=== PATIENT | female | born 1990 | race Caucasian/White ===

== ENCOUNTER 2017-06-05 09:30 | Emergency (ER) | payer OTHER ==
[~2017-06-05] VITALS: Ht 157.5 cm; Wt 67.4 kg
[~2017-06-05 09:30] MED LIST: CALC500C70 PO; IBUP1CAP9 PO; RANI1TAB13 PO; TYLOTC500 PO
[2017-06-05 09:31] VITALS: TEMP 36.7; Ht 157.5 cm; Wt 67.4 kg
[2017-06-05] MEDS ORDERED: XYLOCAINE 1%/SOD BICARB 20 ML VIAL INFIL ONE (10:15)
[2017-06-05] MEDS ORDERED: SERT100T PO (10:42)
[2017-06-05] MEDS ORDERED: LEVO75TA5 PO (10:42)
[2017-06-05] MEDS ORDERED: FENU1CAP2 PO (10:42)
[2017-06-05] MEDS ORDERED: PRENTAB26 PO (10:42)
[2017-06-05] MEDS ORDERED: METO1TAB55 PO (10:42)
--- NOTE | 2017-06-05 10:59 | EMERGENCY ROOM VISIT NOTE ---
ED Visit Note First contact with patient: 09:47 CHIEF COMPLAINT: Right second finger laceration at work today HISTORY OF PRESENT ILLNESS: Patient is a [id number] 27-year-old white female who presents emergency department for evaluation of a laceration to the palmar aspect of her left second finger that occurred at work just prior to arrival. She was holding a piece of picture frame glass, when a small corner broke off, puncturing into the palm of her finger, causing the laceration described below. She does not believe that there is any glass in the wound. She denies any weakness, but states that the finger feels "numb." REVIEW OF SYSTEMS: NEUROLOGICAL: No headache, change in mental status, weakness, numbness, or dizziness. GENERAL: No fever or chills, easy fatigue, loss of appetite, or significant weight change. PMH: Electronic medical records are reviewed and summarized as above/below. See Problem List. Tetanus is up-to-date. SOCIAL HISTORY: Patient lives at home. Smoker. PHYSICAL EXAM: Vital Signs: Reviewed Nurse's notes. There is a 0.5 cm long laceration on the palmar aspect of the right second finger, just distal to the MCP crease. The edges gape apart with traction. There is no foreign material in the wound and it looks clean. There is no bleeding. No deep structures such as tendons or nerves are seen in the base of the wound. Flexion of the finger is full and strong one isolated at the MCP, the PIP and the DIP. EMERGENCY DEPARTMENT COURSE: Using sterile technique, saline and Betadine cleansing, and 1% lidocaine anesthesia, the laceration was repaired with 2, 5-0 nylon sutures. I do not suspect flexor tendon, nerve or vascular injury. I do not suspect retained foreign body. Medication reconciliation: I attest that I have personally reviewed the patient' s current medication list. Blood pressure screening : Patient was found to have normal blood pressure on screening and does not require follow-up. Problem List Medical Problems: (1) Anxiety Status: Chronic (2) Asthma Status: Chronic (3) Bacterial pneumonia Status: Resolved (4) Depression Status: Chronic (5) Depression Status: Resolved (6) DYSMENORRHEA Status: Chronic (7) Gastroesophageal reflux disease Status: Chronic (8) Paresthesias Status: Resolved (9) Right wrist pain Status: Resolved (10) Suicidal ideation Status: Resolved (11) TOBACCO USE DISORDER Status: Chronic Surgical Problems: (1) H/O rhinoplasty Status: Resolved Current/Historical Medications Scheduled Fenugreek (Trigonella Foenum-G (Fenugreek), 1 CAP PO DAILY Levothyroxine Sodium (Levothyroxine Sodium), Unknown Dose PO DAILY Metoclopramide Hcl (Reglan), 10 MG PO BID Multivit/Min/Iron/Fol Ac/Pren ( Vitamin), 1 TAB PO DAILY Sertraline Hcl (Zoloft), 100 MG PO DAILY Allergies Coded Allergies: No Known Allergies (Unverified , 06/05/17) Vital Signs Date Time Temp Pulse Resp B/P (MAP) Pulse Ox O2 Delivery O2 Flow Rate FiO2 06/05/17 11:20 66 16 106/94 97 06/05/17 09:31 36.7 72 18 104/65 97 Room Air Departure Information Impression Primary Impression: Finger laceration Additional Impression: Work related injury Referrals Jeanie Rockwell D.O. (PCP) Patient Instructions [facility] Additional Instructions Keep wound clean and dry. Do not allow any crusting or dried blood to accumulate on sutures. If this occurs, use a 1:1 solution of hydrogen peroxide/ water on a Q-tip to clean the wound. Use an antibiotic ointment for 3-4 days, then let wound dry. Suture removal in 10-12 days. Return sooner for any signs of infection (increasing redness, swelling, drainage). Ice and elevate for swelling and pain. Ibuprofen 600 mg and Tylenol 1000 mg every 6 hrs for pain. Problem Qualifiers
[2017-06-05 11:20] VITALS: BP 106/94; PULSE 66; O2SAT 97
== END 2017-06-05 11:10 | disposition home or self-care (01) ==
LOC: C.EDB 09:31
DX: S61.211A Laceration without foreign body of left index finger without damage to nail, initial encounter (principal); W25.XXXA Contact with sharp glass, initial encounter; Y99.0 Civilian activity done for income or pay; F41.9 Anxiety disorder, unspecified; J45.909 Unspecified asthma, uncomplicated; F32.9 Major depressive disorder, single episode, unspecified; K21.9 Gastro-esophageal reflux disease without esophagitis; N94.6 Dysmenorrhea, unspecified; F17.200 Nicotine dependence, unspecified, uncomplicated

== ENCOUNTER 2021-08-16 09:34 | Inpatient (IN) ==
[~2021-08-16 09:34] MED LIST changes: -CALC500C70 PO; +CITRIC ACID/SODIUM CITRATE 15 ML UDC PO SCH; -IBUP1CAP9 PO; -RANI1TAB13 PO; -TYLOTC500 PO; +ceFAZolin 2000MG 2,000 MG/15 ML SYR IV SCH
[2021-08-16] MEDS ORDERED: LACTATED RINGER'S 1,000 ML IV SCH ×2 (10:30→13:15)
[2021-08-16] MEDS ORDERED: MoRPHine SULFATE PF 1 MG/ML 10 ML AMP/VIAL ONE ×2 (10:36→12:57)
[2021-08-16] MEDS ORDERED: fentaNYL citrate 100 MCG/2 ML VIAL ONE ×2 (10:36→12:10)
--- NOTE | 2021-08-16 10:37 | Anesthesiology Consultation ---
Date of Service August 16, 2021 Assessment & Plan (1) Encounter for pre-operative examination: Chart Review Chart Review: Acceptable Risk for Surgery Consults Requested none ASA [id number] Proposed Anesthesia Anesthesia Type: Spinal Site: Transversus Abdominal Plane Risk / Benefits Reviewed With: PT / POA / Parent / Guardian, Accepts Plan and Informed Consent Obtained History Allergies Allergy/AdvReac Type Severity Reaction Status Date / Time No Known Allergies Allergy Unverified 06/05/17 10:42 Medications Home Medications Medication Instructions Recorded Confirmed Last Taken buprenorphine 8 mg-naloxone 2 mg 4 tab SUBLINGUAL BID 08/10/21 08/16/21 08/16/21 06:00 sublingual tablet prenat.vits,luz,bxk-zgof-hqaeb 1 tab PO DAILY 08/10/21 08/16/21 08/16/21 06:00 albuterol sulfate 90 mcg/actuation INHALATION 08/16/21 Unknown aerosol inhaler NPO Date Last Intake of Fluids: 08/16/21 Time Last Intake of Fluids: 07:30 Date Last Intake of Solids: 08/16/21 Time Last Intake of Solids: 07:30 Past Medical History Medical History delivery delivered Depression Hypothyroid Tobacco dependence Exercise / Class Metabolic Activity II 4-5 Yardwork/Stairs/Walk up hill Past Surgical History Surgical History History of rhinoplasty Past Anesthesia History No Hx of Anesthesia Complications and No Family Hx of Anesthesia Complications History of PONV No Hx of PONV and No Hx of Motion Sickness Social History Smoking Status: Current every day smoker tobacco type: cigarettes Smoking cigarettes per day: 6 Hx Alcohol Use: No Hx Substance Use: No Physical Exam Vital Signs Last Vital Signs Pulse 113 H 08/16/21 09:44 BP 119/77 08/16/21 09:44 ENMT Mouth: no dentition abnormality Thyromental Distance: > or= 3.5 Finger Breadths Mallampati Class: II Neck normal visual inspection Respiratory normal respiratory effort Auscultation: lungs clear to auscultation bilaterally Cardiovascular Rate/Rhythm: regular rate and regular rhythm
--- NOTE | 2021-08-16 10:47 | History & Physical Report ---
Date of Service August 16, 2021 Assessment & Plan (1) 41 weeks gestation of : Plan: 31 year old at 41 0/7 Cat II tracing with prolonged deceleration remote from delivery (2) Non-reassuring electronic monitoring tracing: Plan: Proceed with repeat CD (3) Positive GBS test: (4) Previous delivery affecting , antepartum: (5) Tobacco use affecting in third trimester, antepartum: Plan: Nicotine patch if needed (6) Hepatitis C antibody positive in blood: Plan: Viral load negative January 2021, will repeat (7) complicated by subutex maintenance, antepartum: Plan: Continue home meds as Rx (8) Hypothyroid in , antepartum: (9) History of delivery, currently : (10) Asthma affecting in third trimester: (11) Major depressive disorder affecting : Plan: Admit, routine labs, recommended CD for prolonged deceleration and unable to augment with oxytocin at this time. Consents signed at bedside. Please see op report for counseling note Admission and Anticipated Discharge Date Admission Date: August 16, 2021 History of Present Illness Chief Complaint: TOLAC IOL Primary Care Provider: Jeanie Rockwell DO Patient is a 31 year old at 41 0/7 wga dated by 8 week US who presents for IOL for postdates and previous CDx1. LTCS done at [place] in 2016. Denies LOF, vaginal bleeding, contractions. +FM. Denies headache,, BV, RUQ pain. Otherwise feeling well PNC at [facility], started 10 weeks and 13 visits Last took subutex dose this AM, takes 8mg BID No other complaints at this time. Allergies Allergy/AdvReac Type Severity Reaction Status Date / Time No Known Allergies Allergy Unverified 06/05/17 10:42 Home Medications Medication Instructions Recorded Confirmed Type buprenorphine 8 mg-naloxone 2 mg 4 tab SUBLINGUAL BID 08/10/21 08/16/21 History sublingual tablet prenat.vits,luz,onr-ybon-bmeff 1 tab PO DAILY 08/10/21 08/16/21 History albuterol sulfate 90 mcg/actuation INHALATION 08/16/21 History aerosol inhaler Past Med/Surg History Medical History delivery delivered Depression Hypothyroid Tobacco dependence Surgical History History of rhinoplasty Social History Smoking Status: Current every day smoker Cigarettes Per Day: 6; Second Hand Exposure: Yes; Hx Alcohol Use: No Hx Substance Use: No Preferred Language: Armenian Communication Ability: Effective Motion Picture Set Worker Required: No Beliefs That Will Affect Care: None marital status: Single Current Living Situation: Family Current Living Situation Comment: boyfriend AND DAUGHTER Feels Safe at Home: Yes Safety Concerns: Feels Safe At This Time Assistive Devices: None Review of Systems Review of Systems: All systems reviewed & are unremarkable except as noted in HPI & below Physical Exam Constitutional: WD/WN, vitals as above Respiratory: normal respiratory effort, lungs clear to auscultation Cardiovascular: RRR, no murmur, no edema Gastrointestinal (Abdomen): normal bowel sounds, soft, nontender, no hepatosplenomegaly gravid Genitourinary: no vaginal lesions, no adnexal mass Cx 250/-3 posterior Results & Data Results & Data ([facility]) Vital Signs (Past 12 Hours) Vital Signs Pulse BP 08/16/21 09:44 113 H 119/77 Laboratory Results Pending Code Status & VTE Plan VTE Prophylaxis Plan VTE Prophylaxis will be ordered: Yes
[2021-08-16 10:52] LABS: Hematocrit (blood only) 38.2 % (37-47); Hemoglobin 13.1 g/dL (12.0-16.0); Mean Corpuscular Volume 87.6 fL (80-100); Mean Platelet Volume 10.5 fL (7.4-10.4); Platelet Count 262 K/uL (130-400); RDW Coefficient of Variation 12.6 % (11.5-14.5); RDW Standard Deviation 40.5 fL (36.4-46.3); Red Blood Count 4.36 M/uL (4.2-5.4); White Blood Count 16.79 K/uL (4.8-10.8)
[2021-08-16] MEDS ORDERED: BUPIVACAINE 0.25% 30 ML VIAL ONE (11:02)
[2021-08-16 11:06] LABS: Mean Corpuscular Hgb Conc 34.3 g/dL (32-36)
[2021-08-16 11:21] LABS: Amphetamines+Metham, Urine Neg (Neg); Barbiturates, Urine Neg (Neg); Benzodiazepine, Urine Neg (Neg); Cocaine, Urine Neg (Neg); MDMA (Ecstacy), Urine Neg (Neg); Methadone, Urine Neg (Neg); Opiate, Urine Neg (Neg); Phencyclidine, Urine Neg (Neg)
[2021-08-16] MEDS ORDERED: HYDROmorphone INJ 2 MG/ML SYR/VIAL ONE ×2 (12:13→12:15)
[2021-08-16] MEDS ORDERED: PROPOFOL IV EMULSION 10 MG/ML 20 ML VIAL IV ONE (12:46)
[2021-08-16] MEDS ORDERED: NEOSTIGMINE METHYLSULFATE 1 MG/ML 10ML VIAL ONE (12:46)
[2021-08-16] MEDS ORDERED: SUCCINYLCHOLINE CHLORIDE 20 MG/ML 10 ML VIAL IV ONE (12:46)
[2021-08-16] MEDS ORDERED: GLYCOPYRROLATE 0.2 MG/ML VIAL ONE (12:46)
[2021-08-16] MEDS ORDERED: ePHEDrine sulfate 50 MG/ML AMP ONE (12:56)
[2021-08-16] MEDS ORDERED: OXYTOCIN 10 UNITS/ML VIAL ONE (12:57)
[2021-08-16] MEDS ORDERED: ROCURONIUM BROMIDE 10 MG/ML 5 ML VIAL IV ONE (12:59)
--- NOTE | 2021-08-16 13:02 | Post Operative Brief Note ---
Immediate Post Op Note v1 Date of Surgery August 16, 2021 Pre & Post Diagnosis Operation Date: 08/16/21 11:20 Pre-Op Diagnosis: 1. IUP at 41 Weeks 2. Previous 3. Non-Reassuring FHR Tracing; Remote from delivery. 4. Subutex use during 5. Hypothyroid Post-Op Diagnosis: Same I identified the patient and participated in the time-out.: Yes Procedure Operation Date: 08/16/21 11:20 Actual Procedures p Section in LD in OR #3; Repeat Lower Uterine Transverse Section for the of a live girl at 1209. (Bilateral) - Cecilia Bullock MD, PhD Surgeon Cecilia Bullock MD, PhD Women'S Lacrosse Coach Gwen Thomas RN, Jaelyn Dempsey RESEARCH LABORATORY SPECIALIST Estimated Blood Loss 800 Findings Consistent with Post-Op Diagnosis Liveborn female at 109, weight 3265g APGARs 8/8. Intact placenta 3 vessel cord, Cord pH pending. Normal appearing uterus, bilateral Fallopian tubes and ovaries Drains Pretty Catheter Anesthesia Type General w/FOI & Regional Complications none Disposition Accompanied Patient To Recovery: Yes
[2021-08-16] MEDS ORDERED: FLOSEAL HEMOSTATIC MATRIX 10ML TOP ONE (13:08)
[2021-08-16 13:09] LABS: Base Excess Cord Arterial Bld -4.9 mEq/L (-9-1.8); CO2 Cord Arterial Blood 60 mmHg (39.1-73.5); HCO3 Cord Arterial Blood 24 mmol/L (19.7-28.5); PO2 Cord Arterial Blood 16 mmHg (4.1-31.7)
[2021-08-16] MEDS ORDERED: SENNA 8.6 MG TAB PO PRN (13:11)
[2021-08-16] MEDS ORDERED: diphenhydrAMINE 50 MG/ML VIAL IV PRN (13:11)
[2021-08-16] MEDS ORDERED: BENZOCAINE 20% AER SPR 82.5 GM CAN EXT PRN (13:11)
[2021-08-16] MEDS ORDERED: DIPHTHERIA/TETANUS/PERTUSSIS 0.5 ML SYR/VIAL IM ONE (13:11)
[2021-08-16] MEDS ORDERED: traMADol HCL 50 MG TABLET PO PRN (13:11)
[2021-08-16] MEDS ORDERED: diphenhydrAMINE Capsule 25 MG CAP PO PRN (13:11)
[2021-08-16] MEDS ORDERED: KETOROLAC 30 MG/ML VIAL IV PRN ×2 (13:11→13:52)
[2021-08-16] MEDS ORDERED: PROMETHAZINE HCL 25 MG in SODIUM CHLORIDE 0.9% 50 ML IV PRN (13:11)
[2021-08-16] MEDS ORDERED: SUPERCREAM 0.870% 15 GM JAR EXT PRN (13:11)
[2021-08-16] MEDS ORDERED: ONDANSETRON INJ 2 MG/ML 2 ML VIAL IV PRN ×2 (13:11→13:52)
[2021-08-16] MEDS ORDERED: HYDROCORTISONE ACETATE 25 MG SUPP PR PRN (13:11)
[2021-08-16] MEDS ORDERED: MAGNESIUM HYDROXIDE SUSP 30 ML UDC PO PRN (13:11)
[2021-08-16 13:14] LABS: Base Excess Cord Venous Blood -3.1 mEq/L (-7.7-1.9); Cord Venous Blood HCO3 24 mmol/L (18.4-26.8); Cord Venous Blood PCO2 52 mmHg (30.4-57.2); Cord Venous Blood PO2 23 mmHg (14.1-43.3); Oxygen Sat Cord Arterial Blood < 60.0 % (<60)
[2021-08-16 13:15] LABS: Cord Venous Blood pH 7.29 (7.20-7.44); O2 Saturation Cord Venous Bld < 60.0 % (<68); pH Cord Arterial Blood 7.22 (7.1-7.38)
--- NOTE | 2021-08-16 13:26 | Operative Report ---
Post Operative Report Pre & Post Diagnosis Operation Date: 08/16/21 11:20 Pre-Op Diagnosis: 1. IUP at 41 Weeks 2. Previous lower transverse 3. Non-Reassuring FHR Tracing; Remote from delivery. 4. Subutex use during 5. Hypothyroid in Post-Op Diagnosis: Same I identified the patient and participated in the time-out.: Yes Procedure Operation Date: 08/16/21 11:20 Actual Procedures p Section in LD in OR #3; Repeat Lower Uterine Transverse Section for the of a live girl at 1209. (Bilateral) - Cecilia Bullock MD, PhD CD Delivery Note History synopsis Patient is 31-year-old -1-0-1 at 41 weeks gestation who presented for possible induction of labor for postdates as well as a previous delivery and desires TOLAC. Upon presentation patient had a prolonged deceleration and remained category 2 tracing. She was checked and found to be 2 cm dilated and unchanged since clinic visit. Commended repeat delivery as patient was remote from delivery with nonreassuring heart tracing Procedure Summary: section was recommended. Risks, benefits and alternatives were discussed including but not limited to infection, bleeding that may require blood products or hysterectomy for life saving measures, injury to surrounding organs including but not limited to bowel, bladder, ureters, tubes and ovaries and/or the baby. Should injury occur it could require longer/additional surgery to repair. Patient was also counselled about risk of DVT/PE, and injury to during delivery. The patient stated understanding and desired to proceed. All questions were answered posed by patient. Prior to being taken to the OR, 2 grams of cefazolin IV was administered. The patient was taken to the operating room where regional anesthesia was found to be adequate. Prior to monitors being removed FHR waa 150 bpm with variable deceleration. She was then prepared and draped in the usual sterile fashion in the dorsal supine position with a leftward tilt displacing the uterus. Pretty was draining to gravity. SCDs were on bilateral lower extremities. A pfannenstiel skin incision was then made with the scalpel and carried through to the underlying layer of fascia. The fascia was incised in the midline and the incision extended laterally with the Barney scissors. The superior aspect of the facial incision was then grasped with the Seth clamps, elevated and the underlying rectus muscles dissected off bluntly. Attention was then turned to the inferior aspect of this incision which in a similar fashion was grasped, elevated with the Seth clamps and the rectus muscle dissected off bluntly. The rectus muscles were in the midline. The peritoneum identified, grasped with the pick-ups and entered sharply with the Metzenbaum scissors. The peritoneal incision was then extended superiorly and inferiorly with good visualization of the bladder. The bladder blade was inserted and the vesicouterine peritoneum was identified, grasped with the pick-ups, and entered sharply with Metzenbaum scissors. This incision was then extended laterally and the bladder flap created digitally and the bladder blade was reinserted. The lower uterine segment was identified and incised in a transverse fashion with the scalpel. The uterine incision was then extended bluntly laterally. Artificial rupture of membranes demonstrated clear fluid. The bladder blade was removed. The fetus was in cephalic presentation. After multipe attempts to deliver infants head, A kiwi vacuum device was applied over the sagittal suture and about 3 cm in from the posterior fontanelle toward the face. Vacuum pressure was created with the hand pump and established at 500 mm Hg. The edge of the vacuum cup was carefully examined and no maternal tissue was entrapped under the cuff. With the left hand applying counter pressure on the vacuum cup to prevent pop-off, the right hand applied gentle horizontal traction. The handle of the vacuum was gradually elevated. The cup did not pop off off during the entire procedure. The cup was removed after the head delivered. The 's head delivered atraumatically. The anterior shoulders were delivered followed by the posterior shoulders then the remainder of the body. The 's mouth and nose were bulb suctioned. The umbilical cord was clamped times two and cut. The infant was handed off to the awaiting pediatric staff. A female was delivered [id number] with APGARS of 8 at 1 minute and 9 at 5 minutes. The i nfant was taken to the recovery room for transition. Cord blood gases were obtained. The placenta was removed with gentle traction and manual removal. 30 units of oxytocin were added to IVF and allowed to run freely. The uterus was exteriorized and cleared of all clots and debris. The uterine incision was inspected and found to be without any extensions and was repaired with 0 Vicryl in a running, locked fashion. A second imbricating layer was performed. Upon inspection, the repaired hysterotomy was found to be hemostatic. Patient could no longer tollerate procedure due to pain, and underwent GA at this time. The uterus was firm and returned to the abdomen. There was noted to be bleeding from edge of bladder flap, and hemostasis achieved with figure of eight suture of 2-0 vicyl and Flow seal was applied. The gutters were cleared of all clots and debris. The Peritoneum was closed with 2-0 vicryl in running fashion. The fascia was reapproximated with 0 Vicryl in a running fashion. The subcutaneous layer was closed with 2-0 vicryl. The skin was closed in a subcuticular fashion with 4-0 vicryl. Dermabond and pressure bandage was applied over incision. The patient tolerated the procedure well. Sponge, lap and needle counts were correct x4. Patient was under GA at this time and anesthesia performed a TAP block. The patient was taken to the recovery room in stable condition. Surgeon Cecilia Bullock MD, PhD Medical Billing Clerk Gwen Thomas RN, Jaelyn Dempsey LOW PRESSURE BOILER TENDER Estimated Blood Loss 800 Findings Consistent with Post-Op Diagnosis A liveborn female at 1209, APGArs 8/9, weight 3265g. Intact placenta with 3 vessel cord, cord pH pending. Normal appearing uterus, bilateral Fallopian tubes and ovaries seen at time of surgery. Specimens None Drains None Anesthesia Type General w/FOI & Regional Complications None Disposition Disposition: L&D Description of Procedure Repeat lower transverse section I attest to the content of the Intraoperative Record and any orders documented therein. Any exceptions are noted below.
[2021-08-16] MEDS ORDERED: HYDROmorphone INJ 2 MG/ML SYR/VIAL IV PRN (13:52)
[2021-08-16] MEDS ORDERED: ATROPINE SULFATE 0.1 MG/ML 10ML SYR IV PRN (13:52)
[2021-08-16] MEDS ORDERED: ePHEDrine sulfate 50 MG/ML AMP IV PRN (13:52)
[2021-08-16] MEDS ORDERED: fentaNYL citrate 100 MCG/2 ML VIAL IV PRN (13:52)
[2021-08-16] MEDS ORDERED: ACETAMINOPHEN 1,000 MG/100 ML VIAL IV STA (13:52)
[2021-08-16] MEDS ORDERED: ceFAZolin 1000MG 1,000 MG/7.5 ML SYR IV STA (15:30)
--- NOTE | 2021-08-16 15:41 | Obstetrical Progress Note ---
Date of Service August 16, 2021 Assessment & Plan (1) hemorrhage: Bimanual massage was performed, continue to have vaginal bleeding. Patient was updated at the bedside and was given 1 dose of Methergine, she continued to have vaginal bleeding and childhood asthma history was reviewed and she had not used inhaler in over 20 years. 1 dose of Hemabate was also given IM. At that time decision was made to proceed with a Manny balloon placement, due to the bleeding from the lower uterine segment where the hysterotomy had been repaired and there had been noted oozing at the time of surgery intraoperatively. Updated the patient at the bedside about plan of care, and if the bleeding continues to happen even despite Manny balloon, the plan will be to go back to the OR for exploratory laparotomy, possible hysterectomy. Patient voiced her understanding, back reballoon was placed and 250 mL of saline was placed into the Manny balloon. The balloon was noted to be in the proper location, and Pretty bag was connected to the output. Minimal output noted after Mnany was placed. We will plan to remove in 12 hours. 1gr ancef ordered Patient voided understanding and agreement with plan of care Subjective Called by nursing staff for large amount of vaginal bleeding and clots after delivery to patient's room. .Patient was laying in bed, appears uncomfortable, approximately 7 to 800 mL of bright red blood and clots were noted on the perineum and Chux pad Review of Systems All systems reviewed & are unremarkable except as noted in HPI & below Physical Exam Constitutional WD/WN, vitals as above Respiratory normal respiratory effort, lungs clear to auscultation Cardiovascular RRR, no murmur, no edema Genitourinary Exam was performed that noted large amount of clots at the cervix, suture from delivery was noted in the lower uterine segment, no dehiscence was noted bimanual massage was performed, patient still had ongoing vaginal bleeding from lower uterine segment. Results & Data ([facility]) Vital Signs (Past 12 Hours) Vital Signs Temp Pulse Resp BP Pulse Ox 08/16/21 15:34 66 99 08/16/21 15:29 75 100 08/16/21 15:27 78 90 08/16/21 15:26 67 104/51 L 08/16/21 15:24 75 98 08/16/21 15:19 108 H 79 L 08/16/21 15:17 123 H 90 08/16/21 15:14 123 H 76 L 08/16/21 15:09 144 H 96 08/16/21 15:04 126 H 85 L 08/16/21 15:03 96 H 94 08/16/21 14:59 77 97 08/16/21 14:56 176 H 120/56 L 08/16/21 14:54 124 H 96 08/16/21 14:51 76 93 08/16/21 14:49 67 98 08/16/21 14:46 80 111/57 L 08/16/21 14:44 61 97 08/16/21 14:41 73 93 08/16/21 14:39 58 L 98 08/16/21 14:36 114 H 120/60 08/16/21 14:35 62 20 120/60 98 08/16/21 14:34 59 L 97 08/16/21 14:29 51 L 97 08/16/21 14:26 53 L 110/64 08/16/21 14:25 54 L 24 110/64 95 08/16/21 14:24 67 93 08/16/21 14:23 78 94 08/16/21 14:19 57 L 97 08/16/21 14:16 55 L 114/57 L 90 08/16/21 14:15 56 L 12 114/57 L 99 08/16/21 14:14 58 L 97 08/16/21 14:09 57 L 98 08/16/21 14:06 51 L 113/62 08/16/21 14:05 50 L 18 113/62 98 08/16/21 14:04 51 L 94 08/16/21 14:03 50 L 98/56 L 08/16/21 13:59 51 L 98 08/16/21 13:58 49 L 109/70 08/16/21 13:55 49 L 16 109/70 99 08/16/21 13:54 51 L 99 08/16/21 13:49 49 L 98 08/16/21 13:48 47 L 108/63 08/16/21 13:45 56 L 15 108/63 99 08/16/21 13:44 51 L 96 08/16/21 13:37 48 L 108/70 08/16/21 13:35 36.4 C L 48 L 10 L 108/70 98 08/16/21 10:08 36.8 C 113 H 18 119/77 08/16/21 09:44 113 H 119/77 Laboratory Results CBC pending
--- NOTE | 2021-08-16 15:45 | Anesthesiology Progress Note ---
Date of Service August 16, 2021 Anesthesia Post Procedure Vital Signs Vital Signs: Temp Pulse Resp BP Pulse Ox 08/16/21 15:39 71 98 08/16/21 15:36 68 111/76 08/16/21 15:34 66 99 08/16/21 15:29 75 100 08/16/21 15:27 78 90 08/16/21 15:26 67 104/51 L 08/16/21 15:24 75 98 08/16/21 15:19 108 H 79 L 08/16/21 15:17 123 H 90 08/16/21 15:14 123 H 76 L 08/16/21 15:09 144 H 96 08/16/21 15:04 126 H 85 L 08/16/21 15:03 96 H 94 08/16/21 14:59 77 97 08/16/21 14:56 176 H 120/56 L 08/16/21 14:54 124 H 96 08/16/21 14:51 76 93 08/16/21 14:49 67 98 08/16/21 14:46 80 111/57 L 08/16/21 14:44 61 97 08/16/21 14:41 73 93 08/16/21 14:39 58 L 98 08/16/21 14:36 114 H 120/60 08/16/21 14:35 62 20 120/60 98 08/16/21 14:34 59 L 97 08/16/21 14:29 51 L 97 08/16/21 14:26 53 L 110/64 08/16/21 14:25 54 L 24 110/64 95 08/16/21 14:24 67 93 08/16/21 14:23 78 94 08/16/21 14:19 57 L 97 08/16/21 14:16 55 L 114/57 L 90 08/16/21 14:15 56 L 12 114/57 L 99 08/16/21 14:14 58 L 97 08/16/21 14:09 57 L 98 08/16/21 14:06 51 L 113/62 08/16/21 14:05 50 L 18 113/62 98 08/16/21 14:04 51 L 94 08/16/21 14:03 50 L 98/56 L 08/16/21 13:59 51 L 98 08/16/21 13:58 49 L 109/70 08/16/21 13:55 49 L 16 109/70 99 08/16/21 13:54 51 L 99 08/16/21 13:49 49 L 98 08/16/21 13:48 47 L 108/63 08/16/21 13:45 56 L 15 108/63 99 08/16/21 13:44 51 L 96 08/16/21 13:37 48 L 108/70 08/16/21 13:35 36.4 C L 48 L 10 L 108/70 98 08/16/21 10:08 36.8 C 113 H 18 119/77 08/16/21 09:44 113 H 119/77 Pain Intensity Lower Medial Abdomen: Pain Intensity: 7 Transfer of Care Handoff Completed per policy Notes Mental Status: alert / awake / arousable and participated in evaluation Patient Amnestic to Procedure: Yes Nausea / Vomiting: adequately controlled Pain: adequately controlled Airway Patency, RR, SpO2: stable & adequate BP & HR: stable & adequate Hydration State: stable & adequate Neuraxial Anesthesia: was administered and sensory block is resolving Anesthetic Complications: no major complications apparent
[2021-08-16 15:47] LABS: Hemoglobin 10.1 g/dL (12.0-16.0); Mean Corpuscular Hemoglobin 29.5 pg (25-34); Mean Corpuscular Hgb Conc 33.7 g/dL (32-36); Mean Corpuscular Volume 87.7 fL (80-100); Mean Platelet Volume 10.3 fL (7.4-10.4); Platelet Count 312 K/uL (130-400); RDW Coefficient of Variation 12.8 % (11.5-14.5); RDW Standard Deviation 41.5 fL (36.4-46.3); Red Blood Count 3.42 M/uL (4.2-5.4); White Blood Count 40.12 K/uL (4.8-10.8)
[2021-08-16] MEDS ORDERED: CARBOPROST TROMETHAMINE 250 MCG/ML AMPUL ONE (15:51)
[2021-08-16] MEDS ORDERED: METHYLERGONOVINE MALEATE 0.2 MG/ML AMP ONE (15:52)
[2021-08-16 16:03] LABS: Basophils # (auto) 0.02 K/uL (0-0.2); Eosinophils # (auto) 0.01 K/uL (0-0.5); Immature Granulocytes # (auto) 0.26 K/uL (0.00-0.02); Immature Granulocytes % (auto) 0.6 %; Lymphocytes # (auto) 1.68 K/uL (1.2-3.4); Lymphocytes % (auto) 4.2 %; Monocytes # (auto) 1.99 K/uL (0.11-0.59); Neutrophils # (auto) 36.16 K/uL (1.4-6.5); Neutrophils % (auto) 90.2 %
[2021-08-16] MEDS: OXYTOCIN 30 UNITS in LACTATED RINGER'S 1,000 ML IV SCH ×2 (16:15→23:56)
[2021-08-16] MEDS ORDERED: HYDROmorphone INJ 0.5 MG/0.5 ML SYR IV PRN (18:25)
[2021-08-16] MEDS ORDERED: HYDROmorphone Bolus from PCA IV STA (20:22)
[2021-08-16] MEDS ORDERED: NALOXONE HCL 0.4 MG/1 ML VIAL/CARP IV PRN ×2 (20:22→20:41)
[2021-08-16] MEDS ORDERED: SODIUM CHLORIDE 0.9% 1000ML 1,000 ML IV SCH ×2 (20:30→20:45)
[2021-08-16] MEDS ORDERED: buprenorphine HCL 8 MG SUBL SL SCH (21:00)
[2021-08-16] MEDS: HYDROmorphone PCA 30 MG/30 ML IV PRN (21:31)
[2021-08-16] MEDS: DOCUSATE SODIUM 100 MG CAP PO SCH (21:41)
[2021-08-16] MEDS: SIMETHICONE 80 MG CHEW PO SCH (23:58)
[2021-08-17] MEDS ORDERED: SODIUM CHLORIDE 0.9% 250 ML IV PRN ×2 (02:05→07:06)
--- NOTE | 2021-08-17 05:18 | Obstetrical Progress Note ---
Date of Service August 17, 2021 Assessment & Plan (1) hemorrhage: Manny balloon was removed (was 100mls output for last 12 hrs) and patient tolerated well. No bleeding noted, fundus firm below U. Will continue to monitor. Continue DRUM WORKER until this morning. Morning CBC pending Subjective Patient resting comfortably in bed, pain controlled with DRUM WORKER overnight. Pretty in place. Not ambulating yet, clears only so far Review of Systems All systems reviewed & are unremarkable except as noted in HPI & below Physical Exam Constitutional WD/WN, vitals as above Respiratory normal respiratory effort, lungs clear to auscultation Cardiovascular RRR, no murmur, no edema Gastrointestinal (Abdomen) normal bowel sounds, soft, nontender, no hepatosplenomegaly fundus below U Genitourinary Manny was removed, no bleeding noted Results & Data ([facility]) Vital Signs (Past 12 Hours) Vital Signs Temp Pulse Resp BP Pulse Ox 08/17/21 05:10 97 H 93 08/17/21 05:05 96 H 93 08/17/21 05:02 100 H 123/59 L 08/17/21 05:00 100 H 91 08/17/21 04:55 106 H 91 08/17/21 04:52 96 H 94 08/17/21 04:50 99 H 92 08/17/21 04:47 99 H 94 08/17/21 04:45 97 H 93 08/17/21 04:40 105 H 92 08/17/21 04:36 96 H 94 08/17/21 04:35 94 H 95 08/17/21 04:30 93 H 94 08/17/21 04:25 97 H 20 94 08/17/21 04:20 126 H 89 L 08/17/21 04:15 103 H 97 08/17/21 04:10 125 H 96 08/17/21 04:05 95 H 96 08/17/21 04:04 94 H 94 08/17/21 04:02 101 H 131/57 L 08/17/21 04:00 92 H 95 08/17/21 03:57 98 H 94 08/17/21 03:55 90 95 08/17/21 03:52 91 H 94 08/17/21 03:50 93 H 95 08/17/21 03:45 93 H 96 08/17/21 03:41 92 H 93 08/17/21 03:40 93 H 94 08/17/21 03:36 95 H 94 08/17/21 03:35 86 95 08/17/21 03:30 37.2 C 98 H 20 99 08/17/21 03:29 104 H 94 08/17/21 03:25 90 95 08/17/21 03:20 96 H 95 08/17/21 03:15 84 98 08/17/21 03:10 90 97 08/17/21 03:05 84 98 08/17/21 03:02 92 H 120/62 08/17/21 03:00 93 H 96 08/17/21 02:55 86 98 08/17/21 02:50 93 H 96 08/17/21 02:45 86 95 08/17/21 02:43 102 H 94 08/17/21 02:40 98 H 93 08/17/21 02:38 97 H 94 08/17/21 02:35 83 96 08/17/21 02:30 113 H 22 87 L 08/17/21 02:25 99 H 97 08/17/21 02:20 93 H 99 08/17/21 02:15 101 H 98 08/17/21 02:10 94 H 98 08/17/21 02:04 92 H 98 08/17/21 02:02 101 H 133/62 08/17/21 01:59 98 H 98 08/17/21 01:54 92 H 97 08/17/21 01:49 98 H 97 08/17/21 01:44 103 H 98 08/17/21 01:39 104 H 99 08/17/21 01:34 96 H 96 08/17/21 01:30 22 08/17/21 01:29 103 H 97 08/17/21 01:24 107 H 97 08/17/21 01:19 129 H 99 08/17/21 01:14 127 H 98 08/17/21 01:12 143 H 94 08/17/21 01:08 107 H 97 08/17/21 01:03 105 H 97 08/17/21 01:02 116 H 155/83 H 08/17/21 00:58 116 H 100 08/17/21 00:53 99 H 97 08/17/21 00:48 99 H 97 08/17/21 00:43 95 H 95 08/17/21 00:38 110 H 98 08/17/21 00:33 89 98 08/17/21 00:30 16 08/17/21 00:28 112 H 97 08/17/21 00:23 88 98 08/17/21 00:18 117 H 98 08/17/21 00:16 107 H 90 08/17/21 00:13 96 H 99 08/17/21 00:08 107 H 97 08/17/21 00:03 99 H 99 08/17/21 00:02 96 H 139/66 08/16/21 23:58 92 H 99 08/16/21 23:53 102 H 98 08/16/21 23:48 96 H 97 08/16/21 23:43 111 H 98 08/16/21 23:38 91 H 100 08/16/21 23:33 99 H 98 08/16/21 23:28 97 H 98 08/16/21 23:23 83 98 08/16/21 23:20 37.1 C 22 100 08/16/21 23:18 104 H 99 08/16/21 23:13 88 100 08/16/21 23:08 116 H 100 08/16/21 23:03 98 H 99 08/16/21 23:02 114 H 115/74 08/16/21 22:58 100 H 100 08/16/21 22:53 104 H 99 08/16/21 22:51 110 H 93 08/16/21 22:48 125 H 99 08/16/21 22:43 97 H 99 08/16/21 22:39 141 H 94 08/16/21 22:38 135 H 97 08/16/21 22:33 118 H 99 08/16/21 22:30 24 100 08/16/21 22:28 115 H 99 08/16/21 22:23 116 H 98 08/16/21 22:18 119 H 99 08/16/21 22:13 137 H 99 08/16/21 22:08 158 H 100 08/16/21 22:03 115 H 08/16/21 22:02 130 H 110/67 08/16/21 21:58 121 H 99 08/16/21 21:53 131 H 100 08/16/21 21:50 138 H 81 L 08/16/21 21:48 138 H 100 08/16/21 21:42 175 H 95 10/08/21 21:37 96 H 99 08/16/21 21:32 110 H 100 08/16/21 21:27 123 H 100 08/16/21 21:22 100 H 100 08/16/21 21:17 119 H 100 08/16/21 21:11 98 H 100 08/16/21 21:06 98 H 100 08/16/21 21:02 112 H 120/79 08/16/21 21:01 115 H 99 08/16/21 20:56 94 H 99 08/16/21 20:51 111 H 100 08/16/21 20:46 104 H 100 08/16/21 20:41 99 H 100 08/16/21 20:36 92 H 100 08/16/21 20:31 109 H 100 08/16/21 20:26 112 H 100 08/16/21 20:21 112 H 100 08/16/21 20:16 108 H 100 08/16/21 20:11 128 H 100 08/16/21 20:06 108 H 100 08/16/21 20:03 98 H 106/50 L 08/16/21 20:01 118 H 100 08/16/21 20:00 18 08/16/21 19:56 123 H 100 08/16/21 19:51 108 H 100 08/16/21 19:46 131 H 100 08/16/21 19:41 123 H 100 08/16/21 19:36 131 H 100 08/16/21 19:31 134 H 100 08/16/21 19:29 155 H 92/74 L 08/16/21 19:26 141 H 100 08/16/21 19:21 125 H 100 08/16/21 19:16 109 H 100 08/16/21 19:14 108 H 104/76 08/16/21 19:11 114 H 100 08/16/21 19:06 137 H 100 08/16/21 19:01 131 H 100 08/16/21 19:00 36.8 C 22 100 08/16/21 18:59 114 H 105/78 08/16/21 18:56 136 H 100 08/16/21 18:51 111 H 100 08/16/21 18:46 108 H 100 08/16/21 18:44 125 H 102/72 08/16/21 18:41 135 H 100 08/16/21 18:36 36.7 C 108 H 24 100/71 98 08/16/21 18:34 141 H 98 08/16/21 18:29 145 H 98 08/16/21 18:24 132 H 98 08/16/21 18:19 101 H 98 08/16/21 18:14 143 H 111/61 98 08/16/21 18:09 136 H 98 08/16/21 18:04 144 H 96 08/16/21 17:59 118 H 97 08/16/21 17:56 155 H 104/73 08/16/21 17:54 140 H 97 08/16/21 17:49 155 H 98 08/16/21 17:46 36.8 C 142 H 16 92/67 L 08/16/21 17:44 139 H 97 08/16/21 17:39 152 H 98 08/16/21 17:36 146 H 101/71 08/16/21 17:34 149 H 97 08/16/21 17:29 135 H 97 08/16/21 17:26 118 H 102/70 08/16/21 17:24 133 H 96 08/16/21 17:19 135 H 96 08/16/21 17:16 109 H 104/69
[2021-08-17 06:08] LABS: Hematocrit (blood only) 16.8 % (37-47); Hemoglobin 5.8 g/dL (12.0-16.0); Mean Corpuscular Hemoglobin 29.9 pg (25-34); Mean Corpuscular Hgb Conc 34.5 g/dL (32-36); Mean Corpuscular Volume 86.6 fL (80-100); Mean Platelet Volume 9.9 fL (7.4-10.4); Platelet Count 211 K/uL (130-400); RDW Standard Deviation 40.8 fL (36.4-46.3); Red Blood Count 1.94 M/uL (4.2-5.4); White Blood Count 25.85 K/uL (4.8-10.8)
[2021-08-17 06:14] LABS: ALC (manual) 2.95 K/uL (1.2-3.4); Lymphocytes # (manual) 2.95 K/uL (1.2-3.4); Lymphocytes % (manual) 11.4 %; Monocytes % (manual) 3.5 %; Neutrophils % (manual) 85.1 %; RBC Morphology Unremarkable
[2021-08-17 07:00] LABS: Hematocrit (blood only) 16.6 % (37-47); Hemoglobin 5.8 g/dL (12.0-16.0)
--- NOTE | 2021-08-17 10:39 | Obstetrical Progress Note ---
Date of Service August 17, 2021 Assessment & Plan (1) hemorrhage: post op c/sec #1 PPH-Pt getting 2 units PRBC Stable vitals Repeat H/H after 2nd unit Clinically sable Subjective Ambulation: ambulating normally Voiding: no voiding problems Passing Gas:: Yes Diet Tolerance:: clear liquids Lochia:: Small Feeding Type:: breast feeding Review of Systems All systems reviewed & are unremarkable except as noted in HPI & below Physical Exam Constitutional WD/WN, vitals as above well developed and well nourished Eyes PERRL, conjunctivae normal, anicteric sclerae ENMT external ear and nose normal, oropharynx normal Neck trachea midline, no thyromegaly Respiratory normal respiratory effort, lungs clear to auscultation Cardiovascular RRR, no murmur, no edema Chest (Breasts) normal inspection/palpation of breasts Gastrointestinal (Abdomen) normal bowel sounds, soft, nontender, no hepatosplenomegaly Musculoskeletal no cyanosis or clubbing, extremities motor strength 5/5 Skin no rashes, warm and dry + incision (Clean,dry and intact) Neurologic patellar DTR's 2+ bilat, sensation intact Psychiatric A+Ox3, euthymic affect Genitourinary normal external appearance Lymphatic no cervical or axillary lymphadenopathy Results & Data ([facility]) Vital Signs (Past 12 Hours) Vital Signs Temp Pulse Resp BP Pulse Ox 08/17/21 10:34 101 H 101/55 L 08/17/21 10:30 106 H 93 08/17/21 10:25 97 H 94 08/17/21 10:20 100 H 94 08/17/21 10:19 91 H 111/58 L 08/17/21 10:15 107 H 94 08/17/21 10:10 109 H 93 08/17/21 10:05 97 H 93 08/17/21 10:04 113 H 127/61 08/17/21 10:00 110 H 95 08/17/21 09:56 145 H 83 L 08/17/21 09:55 142 H 91 08/17/21 09:50 131 H 94 08/17/21 09:49 121 H 138/58 L 08/17/21 09:46 85 18 101/53 L 94 08/17/21 09:45 100 H 95 08/17/21 09:40 111 H 96 08/17/21 09:35 101 H 94 08/17/21 09:34 85 101/53 L 08/17/21 09:30 96 H 94 08/17/21 09:25 100 H 92 08/17/21 09:20 91 H 94 08/17/21 09:19 37.2 C 86 18 106/54 L 94 08/17/21 09:15 99 H 93 08/17/21 09:10 95 H 93 08/17/21 09:05 85 94 08/17/21 09:04 96 H 113/57 L 08/17/21 09:03 96 H 18 113/57 L 94 08/17/21 09:00 109 H 94 08/17/21 08:58 96 H 84 L 08/17/21 08:55 84 96 08/17/21 08:50 96 H 94 08/17/21 08:49 37.4 C 102 H 18 101/55 L 96 08/17/21 08:45 103 H 96 08/17/21 08:40 103 H 93 08/17/21 08:35 93 H 95 08/17/21 08:32 37 C 93 H 19 123/60 96 08/17/21 08:30 90 96 08/17/21 08:28 113 H 123/60 08/17/21 08:25 97 H 95 08/17/21 08:24 109 H 94 08/17/21 08:20 92 H 95 08/17/21 08:18 91 H 94 08/17/21 08:15 94 H 94 08/17/21 08:13 92 H 94 08/17/21 08:10 96 H 95 08/17/21 08:08 96 H 94 08/17/21 08:05 90 95 08/17/21 08:03 93 H 94 08/17/21 08:02 89 107/62 08/17/21 08:00 95 H 94 08/17/21 07:55 103 H 94 08/17/21 07:54 106 H 94 08/17/21 07:50 104 H 92 08/17/21 07:49 133 H 93 08/17/21 07:45 96 H 96 08/17/21 07:44 105 H 94 08/17/21 07:40 108 H 96 08/17/21 07:36 118 H 94 08/17/21 07:35 108 H 95 08/17/21 07:30 94 H 96 08/17/21 07:26 94 H 94 08/17/21 07:25 100 H 95 08/17/21 07:20 101 H 94 08/17/21 07:15 94 H 94 08/17/21 07:12 94 H 94 08/17/21 07:10 101 H 93 08/17/21 07:05 96 H 92 08/17/21 07:02 99 H 112/56 L 08/17/21 07:00 97 H 93 08/17/21 06:56 98 H 94 08/17/21 06:55 98 H 94 08/17/21 06:50 89 94 08/17/21 06:47 98 H 94 08/17/21 06:45 97 H 93 08/17/21 06:40 104 H 91 08/17/21 06:35 91 H 91 08/17/21 06:30 99 H 91 08/17/21 06:25 97 H 90 08/17/21 06:20 99 H 92 08/17/21 06:15 95 H 22 92 08/17/21 06:10 101 H 92 08/17/21 06:05 99 H 94 08/17/21 06:02 98 H 111/53 L 08/17/21 06:01 99 H 94 08/17/21 06:00 105 H 92 08/17/21 05:55 96 H 93 08/17/21 05:50 92 H 92 08/17/21 05:45 100 H 89 L 08/17/21 05:43 88 93 08/17/21 05:40 105 H 93 08/17/21 05:35 103 H 88 L 08/17/21 05:30 101 H 89 L 08/17/21 05:25 92 H 94 08/17/21 05:24 95 H 94 08/17/21 05:20 101 H 95 08/17/21 05:19 105 H 93 08/17/21 05:15 94 H 22 97 08/17/21 05:10 97 H 93 08/17/21 05:05 96 H 93 08/17/21 05:02 100 H 123/59 L 08/17/21 05:00 100 H 91 08/17/21 04:55 106 H 91 08/17/21 04:52 96 H 94 08/17/21 04:50 99 H 92 08/17/21 04:47 99 H 94 08/17/21 04:45 97 H 93 08/17/21 04:40 105 H 92 08/17/21 04:36 96 H 94 08/17/21 04:35 94 H 95 08/17/21 04:30 93 H 94 08/17/21 04:25 97 H 20 94 08/17/21 04:20 126 H 89 L 08/17/21 04:15 103 H 97 08/17/21 04:10 125 H 96 08/17/21 04:05 95 H 96 08/17/21 04:04 94 H 94 08/17/21 04:02 101 H 131/57 L 08/17/21 04:00 92 H 95 08/17/21 03:57 98 H 94 08/17/21 03:55 90 95 08/17/21 03:52 91 H 94 08/17/21 03:50 93 H 95 08/17/21 03:45 93 H 96 08/17/21 03:41 92 H 93 08/17/21 03:40 93 H 94 08/17/21 03:36 95 H 94 08/17/21 03:35 86 95 08/17/21 03:30 37.2 C 98 H 20 99 08/17/21 03:29 104 H 94 08/17/21 03:25 90 95 08/17/21 03:20 96 H 95 08/17/21 03:15 84 98 08/17/21 03:10 90 97 08/17/21 03:05 84 98 08/17/21 03:02 92 H 120/62 08/17/21 03:00 93 H 96 08/17/21 02:55 86 98 08/17/21 02:50 93 H 96 08/17/21 02:45 86 95 08/17/21 02:43 102 H 94 08/17/21 02:40 98 H 93 08/17/21 02:38 97 H 94 08/17/21 02:35 83 96 08/17/21 02:30 113 H 22 87 L 08/17/21 02:25 99 H 97 08/17/21 02:20 93 H 99 08/17/21 02:15 101 H 98 08/17/21 02:10 94 H 98 08/17/21 02:04 92 H 98 08/17/21 02:02 101 H 133/62 08/17/21 01:59 98 H 98 08/17/21 01:54 92 H 97 08/17/21 01:49 98 H 97 08/17/21 01:44 103 H 98 08/17/21 01:39 104 H 99 08/17/21 01:34 96 H 96 08/17/21 01:30 22 08/17/21 01:29 103 H 97 08/17/21 01:24 107 H 97 08/17/21 01:19 129 H 99 08/17/21 01:14 127 H 98 08/17/21 01:12 143 H 94 08/17/21 01:08 107 H 97 08/17/21 01:03 105 H 97 08/17/21 01:02 116 H 155/83 H 08/17/21 00:58 116 H 100 08/17/21 00:53 99 H 97 08/17/21 00:48 99 H 97 08/17/21 00:43 95 H 95 08/17/21 00:38 110 H 98 08/17/21 00:33 89 98 08/17/21 00:30 16 08/17/21 00:28 112 H 97 08/17/21 00:23 88 98 08/17/21 00:18 117 H 98 08/17/21 00:16 107 H 90 08/17/21 00:13 96 H 99 08/17/21 00:08 107 H 97 08/17/21 00:03 99 H 99 08/17/21 00:02 96 H 139/66 08/16/21 23:58 92 H 99 08/16/21 23:53 102 H 98 08/16/21 23:48 96 H 97 08/16/21 23:43 111 H 98 08/16/21 23:38 91 H 100 08/16/21 23:33 99 H 98 08/16/21 23:28 97 H 98 08/16/21 23:23 83 98 08/16/21 23:20 37.1 C 22 100 08/16/21 23:18 104 H 99 08/16/21 23:13 88 100 08/16/21 23:08 116 H 100 08/16/21 23:03 98 H 99 08/16/21 23:02 114 H 115/74 08/16/21 22:58 100 H 100 08/16/21 22:53 104 H 99 08/16/21 22:51 110 H 93 08/16/21 22:48 125 H 99 08/16/21 22:43 97 H 99 08/16/21 22:39 141 H 94 08/16/21 22:38 135 H 97
[2021-08-17] MEDS: SIMETHICONE 80 MG CHEW PO SCH ×4 (12:39→21:02)
[2021-08-17] MEDS: FERROUS SULFATE 325 MG TAB PO SCH (12:45)
[2021-08-17] MEDS: PRENATAL VITAMIN 1 TAB PO SCH (12:45)
[2021-08-17] MEDS: DOCUSATE SODIUM 100 MG CAP PO SCH ×2 (12:45→21:02)
[2021-08-17] MEDS: HYDROmorphone PCA 30 MG/30 ML IV PRN ×2 (13:01→15:24)
[2021-08-17] MEDS ORDERED: ALBUTEROL 0.083% NEBU SOLN 3 ML VIAL ONE (13:51)
[2021-08-17] MEDS ORDERED: ALBUTEROL 0.083% NEBU SOLN 3 ML VIAL NEB PRN (14:01)
[2021-08-17] MEDS ORDERED: ALBUTEROL HFA 8 GM INHALER INH PRN (14:03)
[2021-08-17] MEDS ORDERED: Nursing to Pharmacy Communication SCH (14:45)
[2021-08-17 17:51] LABS: Hematocrit (blood only) 22.2 % (37-47); Hemoglobin 7.5 g/dL (12.0-16.0)
[2021-08-17] MEDS: IBUPROFEN 600 MG TAB PO PRN (19:26)
[2021-08-17] MEDS: oxyCODONE/ACETAMINOPHEN 5mg/325mg TAB PO PRN (19:27)
[2021-08-17] MEDS ORDERED: bisacodyL 5 MG TABEC PO SCH (20:00)
[2021-08-17] MEDS: buprenorphine HCL 2 MG SUBL SL SCH (21:03)
[2021-08-18] MEDS: IBUPROFEN 600 MG TAB PO PRN ×4 (02:57→23:46)
[2021-08-18] MEDS: oxyCODONE/ACETAMINOPHEN 5mg/325mg TAB PO PRN ×3 (02:57→19:52)
[2021-08-18] MEDS ORDERED: FUROSEMIDE 40 MG in SYRINGE 0 ML IV ONE (04:00)
[2021-08-18] MEDS ORDERED: XOPENEX/ATROVENT 1.25mg/0.5MG NEB COMBO NEB STA (04:19)
[2021-08-18] MEDS ORDERED: LEVALBUTEROL 1.25MG/0.5ML NEB INH STA (04:27)
[2021-08-18] MEDS ORDERED: IPRATROPIUM BROMIDE NEB SOLN 0.02% 2.5 ML VIAL INH STA (04:27)
[2021-08-18] MEDS ORDERED: XOPENEX/ATROVENT 1.25mg/0.5MG NEB COMBO NEB PRN (05:27)
[2021-08-18] MEDS ORDERED: LEVALBUTEROL 1.25MG/0.5ML NEB INH PRN (05:30)
[2021-08-18] MEDS ORDERED: IPRATROPIUM BROMIDE NEB SOLN 0.02% 2.5 ML VIAL INH PRN (05:30)
[2021-08-18 05:32] LABS: Partial Thromboplastin Ratio 0.9; Partial Thromboplastin Time 24.3 Seconds (21.0-31.0)
--- NOTE | 2021-08-18 05:39 | Hospitalist Consultation ---
Date of Consultation August 18, 2021 Assessment & Plan (1) 41 weeks gestation of : Final Assessment and Recommendations as follows : hypoxemia Acute hypoxemic respiratory failure secondary to chronic bronchitis Ongoing tobacco abuse Marked clinical improvement after initial intervention. Chest pain secondary to above Troponin elevation possibly from transient tachycardia hypothyroidism, as of recent outpatient TSH from 2 months ago anxiety/mood disorder, at baseline chronic pain on Subutex Postop anemia/ hemorrhage ongoing tobacco abuse Supplemental O2 Nebs RTC for now Mucolytic May benefit from steroid medication if patient and OB provider agreeable given patient breast-feeding concerns. Follow troponin TTE, PCU transfer if with subsequent progression Follow H&H, transfuse PRBC if hemoglobin less than 7 and or from symptomatic anemia Nicotine patch as needed Recommend SCDs for DVT prophylaxis. Thank you very much for this consultation. Dr. Puente will follow patient's progress. Text document was generated using Ensa voice recognition software. It may contain grammatical or spelling errors. Kindly contact undersigned for clarification of any documentation item in question. History of Present Illness Reason for Consultation: Hypoxemia Requesting Physician: Dr. Man Attending Physician: Cecilia Bullock MD, PhD History of Present Illness PCP : Dr. Rockwell History obtained from patient and records. Medical history significant for childhood asthma, hypothyroidism, anxiety/mood disorder, chronic pain on Subutex, ongoing tobacco abuse. Patient admitted August 16, 2021 under OB service for prolonged deceleration remote from delivery. Patient subsequently underwent section. Patient received 2 units PRBC yesterday for hemorrhage after hemoglobin noted to be 5.8. Persistent smoker's cough symptoms even before admission. Patient unable to expectorate. No fever, no chills. Smoker's cough somewhat worsened as per patient overnight. Transient chest pressure, nonpleuritic. Patient denies unusual leg swelling/leg pain. O2 sats noted to be 80s around 3 AM. IV Lasix given by OB provider money manager. Subsequent neb treatment administered. Patient currently feeling much better. Medical History as above Surgical History : section, nasal reconstruction Family History : Colon cancer, lung cancer, liver cancer, heart disease Personal/Social history : Half pack daily, no EtOH intake, cleaning business Allergies Allergy/AdvReac Type Severity Reaction Status Date / Time No Known Allergies Allergy Unverified 06/05/17 10:42 Home Medications Medication Instructions Recorded Confirmed Type buprenorphine 8 mg-naloxone 2 mg 4 tab SUBLINGUAL BID 08/10/21 08/16/21 History sublingual tablet prenat.vits,luz,lwh-krvj-suvuf 1 tab PO DAILY 08/10/21 08/16/21 History albuterol sulfate 90 mcg/actuation INHALATION 08/16/21 History aerosol inhaler Patient History Medical History delivery delivered Depression Hypothyroid Tobacco dependence Surgical History History of rhinoplasty Social History Smoking Status: Current every day smoker Cigarettes Per Day: 6; Second Hand Exposure: Yes; Hx Alcohol Use: No Hx Substance Use: No Preferred Language: Slovenian Communication Ability: Effective Network Designer Required: No Beliefs That Will Affect Care: None marital status: Single Current Living Situation: Family Current Living Situation Comment: boyfriend AND DAUGHTER Feels Safe at Home: Yes Safety Concerns: Feels Safe At This Time Assistive Devices: None Review of Systems Review of Systems: As per HPI, all 10 systems reviewed, all other ROS negative Physical Exam Physical Exam: GENERAL: Slightly uncomfortable and anxious, no respiratory distress SKIN: Pallor, warm HEENT: Pale palpebral conjunctivae, no ptosis, dry buccal mucosa NECK : Supple, no tenderness CHEST : Decreased breath sounds, expiratory wheezes , no tenderness HEART : RRR, no obvious murmurs ABDOMEN: Some distention, nontender EXTREMITIES : Minimal LE swelling, no LE tenderness, no other conspicuous deformities noted NEUROLOGIC : Coherent, no facial asymmetry, no other gross focality Results & Data Results & Data ([facility]) Vital Signs (Past 12 Hours) Vital Signs Temp Pulse Resp BP Pulse Ox 08/18/21 04:37 90 20 92 08/18/21 03:57 107 H 20 84 L 08/18/21 03:00 36.7 C 102 H 18 106/68 83 L 08/17/21 23:00 36.4 C L 105 H 18 100/64 92 08/17/21 19:30 37.1 C 102 H 20 106/72 93 Laboratory Results Laboratory Results WBC 25.85 K/uL (4.8-10.8) H D 08/17/21 05:40 RBC 1.94 M/uL (4.2-5.4) L 08/17/21 05:40 Hgb 7.5 g/dL (12.0-16.0) L 08/17/21 17:42 Hct 22.2 % (37-47) L 08/17/21 17:42 MCV 86.6 fL (80-100) 08/17/21 05:40 MCH 29.9 pg (25-34) 08/17/21 05:40 MCHC 34.5 g/dL (32-36) 08/17/21 05:40 RDW Std Deviation 40.8 fL (36.4-46.3) 08/17/21 05:40 RDW Coeff of Mitchell 13.0 % (11.5-14.5) 08/17/21 05:40 Plt Count 211 K/uL (130-400) 08/17/21 05:40 MPV 9.9 fL (7.4-10.4) 08/17/21 05:40 Immature Gran % (Auto) 0.6 % 08/16/21 15:35 Neut % (Auto) 90.2 % 08/16/21 15:35 Lymph % (Auto) 4.2 % 08/16/21 15:35 Mcclain % (Auto) 5.0 % 08/16/21 15:35 Eos % (Auto) 0.0 % 08/16/21 15:35 Baso % (Auto) 0.0 % 08/16/21 15:35 Neut # (Auto) 36.16 K/uL (1.4-6.5) H 08/16/21 15:35 Lymph # (Auto) 1.68 K/uL (1.2-3.4) 08/16/21 15:35 Mcclain # (Auto) 1.99 K/uL (0.11-0.59) H 08/16/21 15:35 Eos # (Auto) 0.01 K/uL (0-0.5) 08/16/21 15:35 Baso # (Auto) 0.02 K/uL (0-0.2) 08/16/21 15:35 Immature Gran # (Auto) 0.26 K/uL (0.00-0.02) H 08/16/21 15:35 Neutrophils % (Manual) 85.1 % 08/17/21 05:40 Lymphocytes % (Manual) 11.4 % 08/17/21 05:40 Monocytes % (Manual) 3.5 % 08/17/21 05:40 Neutrophils # (Manual) 22.00 K/uL (1.4-6.5) H 08/17/21 05:40 Total Absolute Neuts 22.00 K/uL (1.4-6.5) H 08/17/21 05:40 Lymphocytes # (Manual) 2.95 K/uL (1.2-3.4) 08/17/21 05:40 Total Abs Lymphocytes 2.95 K/uL (1.2-3.4) 08/17/21 05:40 Monocytes # (Manual) 0.90 K/uL (0.11-0.59) H 08/17/21 05:40 RBC Morphology Unremarkable 08/17/21 05:40 APTT 24.3 Seconds (21.0-31.0) 08/18/21 05:05 PTT Ratio 0.9 08/18/21 05:05 Cord ABG pH 7.22 (7.1-7.38) 08/16/21 12:09 Cord ABG pCO2 60 mmHg (39.1-73.5) 08/16/21 12:09 Cord ABG pO2 16 mmHg (4.1-31.7) 08/16/21 12:09 Cord ABG HCO3 24 mmol/L (19.7-28.5) 08/16/21 12:09 Cord ABG Base Excess -4.9 mEq/L (-9-1.8) 08/16/21 12:09 Cord ABG O2 Sat < 60.0 % (<60) 08/16/21 12:09 Cord VBG pH 7.29 (7.20-7.44) 08/16/21 12:09 Cord VBG pCO2 52 mmHg (30.4-57.2) 08/16/21 12:09 Cord VBG pO2 23 mmHg (14.1-43.3) 08/16/21 12:09 Cord VBG HCO3 24 mmol/L (18.4-26.8) 08/16/21 12:09 Cord VBG Base Excess -3.1 mEq/L (-7.7-1.9) 08/16/21 12:09 Cord VBG O2 Sat < 60.0 % (<68) 08/16/21 12:09 Barometric Pressure 733.9 mm/Hg 08/16/21 12:09 Barometric Pressure 734.1 mm/Hg 08/16/21 12:09 Blood Gas Comments MARTINEZ 08/16/21 12:09 Blood Gas Comments MARTINEZ 08/16/21 12:09 Urine Opiates Screen Neg (Neg) 08/16/21 Unknown Ur Buprenorphine Level Cancelled 08/16/21 10:55 Ur Norbuprenorphine Level Cancelled 08/16/21 10:55 Ur Methadone, Qual Neg (Neg) 08/16/21 Unknown Urine Barbiturates Neg (Neg) 08/16/21 Unknown Ur Phencyclidine (PCP) Neg (Neg) 08/16/21 Unknown U Amphetamin/Meth Scrn Neg (Neg) 08/16/21 Unknown MDMA (Ecstasy) Screen Neg (Neg) 08/16/21 Unknown U Benzodiazepines Scrn Neg (Neg) 08/16/21 Unknown Ur Cocaine Metabolite Neg (Neg) 08/16/21 Unknown U Marijuana (THC) Screen Neg (Neg) 08/16/21 Unknown Drug Screen Comment Cancelled 08/16/21 10:55 [facility] 08/16/21 09:51 SARS-CoV-2, RNA, NAAT NEGATIVE (NEGATIVE) 08/16/21 09:51 Blood Type O Positive 08/16/21 10:42 Blood Type Recheck O Positive 08/17/21 05:40 Antibody Screen NEGATIVE 08/16/21 10:42 Crossmatch See Detail 08/16/21 10:42 Laboratory Results WBC 17.07 K/uL (4.8-10.8) H 08/18/21 06:42 RBC 2.66 M/uL (4.2-5.4) L 08/18/21 06:42 Hgb 7.8 g/dL (12.0-16.0) L 08/18/21 06:42 Hct 22.9 % (37-47) L 08/18/21 06:42 MCV 86.1 fL (80-100) 08/18/21 06:42 MCH 29.3 pg (25-34) 08/18/21 06:42 MCHC 34.1 g/dL (32-36) 08/18/21 06:42 RDW Std Deviation 45.9 fL (36.4-46.3) 08/18/21 06:42 RDW Coeff of Mitchell 14.8 % (11.5-14.5) H 08/18/21 06:42 Plt Count 192 K/uL (130-400) 08/18/21 06:42 MPV 9.5 fL (7.4-10.4) 08/18/21 06:42 Immature Gran % (Auto) 0.5 % 08/18/21 06:42 Neut % (Auto) 84.2 % 08/18/21 06:42 Lymph % (Auto) 9.8 % 08/18/21 06:42 Mcclain % (Auto) 5.4 % 08/18/21 06:42 Eos % (Auto) 0.0 % 08/18/21 06:42 Baso % (Auto) 0.1 % 08/18/21 06:42 Neut # (Auto) 14.37 K/uL (1.4-6.5) H 08/18/21 06:42 Lymph # (Auto) 1.67 K/uL (1.2-3.4) 08/18/21 06:42 Mcclain # (Auto) 0.93 K/uL (0.11-0.59) H 08/18/21 06:42 Eos # (Auto) 0.00 K/uL (0-0.5) 08/18/21 06:42 Baso # (Auto) 0.02 K/uL (0-0.2) 08/18/21 06:42 Immature Gran # (Auto) 0.08 K/uL (0.00-0.02) H 08/18/21 06:42 Neutrophils % (Manual) 85.1 % 08/17/21 05:40 Lymphocytes % (Manual) 11.4 % 08/17/21 05:40 Monocytes % (Manual) 3.5 % 08/17/21 05:40 Neutrophils # (Manual) 22.00 K/uL (1.4-6.5) H 08/17/21 05:40 Total Absolute Neuts 22.00 K/uL (1.4-6.5) H 08/17/21 05:40 Lymphocytes # (Manual) 2.95 K/uL (1.2-3.4) 08/17/21 05:40 Total Abs Lymphocytes 2.95 K/uL (1.2-3.4) 08/17/21 05:40 Monocytes # (Manual) 0.90 K/uL (0.11-0.59) H 08/17/21 05:40 RBC Morphology Unremarkable 08/18/21 06:42 APTT 24.3 Seconds (21.0-31.0) 08/18/21 05:05 PTT Ratio 0.9 08/18/21 05:05 ABG pH 7.47 (7.35-7.45) H 08/18/21 06:42 ABG pCO2 36 mmHg (35-46) 08/18/21 06:42 ABG pO2 73 mmHg (80-95) L 08/18/21 06:42 ABG HCO3 26 mmol/L (19-24) H 08/18/21 06:42 ABG O2 Saturation 93.0 % (90-95) 08/18/21 06:42 ABG Base Excess 1.8 mEq/L (-9-1.8) 08/18/21 06:42 Junior Test Pos (Pos) 08/18/21 06:42 Cord ABG pH 7.22 (7.1-7.38) 08/16/21 12:09 Cord ABG pCO2 60 mmHg (39.1-73.5) 08/16/21 12:09 Cord ABG pO2 16 mmHg (4.1-31.7) 08/16/21 12:09 Cord ABG HCO3 24 mmol/L (19.7-28.5) 08/16/21 12:09 Cord ABG Base Excess -4.9 mEq/L (-9-1.8) 08/16/21 12:09 Cord ABG O2 Sat < 60.0 % (<60) 08/16/21 12:09 Cord VBG pH 7.29 (7.20-7.44) 08/16/21 12:09 Cord VBG pCO2 52 mmHg (30.4-57.2) 08/16/21 12:09 Cord VBG pO2 23 mmHg (14.1-43.3) 08/16/21 12:09 Cord VBG HCO3 24 mmol/L (18.4-26.8) 08/16/21 12:09 Cord VBG Base Excess -3.1 mEq/L (-7.7-1.9) 08/16/21 12:09 Cord VBG O2 Sat < 60.0 % (<68) 08/16/21 12:09 Barometric Pressure 733.9 mm/Hg 08/18/21 06:42 Oxygen Given 5 08/18/21 06:42 Blood Gas Comments MARTINEZ 08/16/21 12:09 Blood Gas Comments MARTINEZ 08/16/21 12:09 Sodium 141 mmol/L (136-145) 08/18/21 05:05 Potassium 3.6 mmol/L (3.5-5.1) 08/18/21 05:05 Chloride 109 mmol/L (98-107) H 08/18/21 05:05 Carbon Dioxide 25 mmol/L (21-32) 08/18/21 05:05 Anion Gap 7.0 (3-11) 08/18/21 05:05 BUN 12 mg/dl (7-18) 08/18/21 05:05 Creatinine 0.65 mg/dl (0.6-1.2) 08/18/21 05:05 Est Cr Clr Drug Dosing 191.2 ml/min 08/18/21 05:05 Est GFR ( Amer) 139.1 ml/min 08/18/21 05:05 Est GFR (Non-Af Amer) 120.0 ml/min 08/18/21 05:05 BUN/Creatinine Ratio 18.4 (10-20) 08/18/21 05:05 Glucose 90 mg/dl (70-99) 08/18/21 05:05 Lactate 0.9 mmol/L (0.4-2.0) 08/18/21 05:05 Calcium 8.5 mg/dl (8.5-10.1) 08/18/21 05:05 Magnesium 2.2 mg/dl (1.8-2.4) 08/18/21 05:05 Total Bilirubin 0.4 mg/dl (0.2-1) 08/18/21 05:05 AST 53 U/L (15-37) H 08/18/21 05:05 ALT 18 U/L (12-78) 08/18/21 05:05 Alkaline Phosphatase 107 U/L (45-117) 08/18/21 05:05 Troponin I 0.241 ng/ml (0-0.045) H* 08/18/21 06:42 Total Protein 5.8 gm/dl (6.4-8.2) L 08/18/21 05:05 Albumin 2.1 gm/dl (3.4-5.0) L 08/18/21 05:05 Globulin 3.7 gm/dl (2.5-4.0) 08/18/21 05:05 Albumin/Globulin Ratio 0.6 (0.9-2) L 08/18/21 05:05 Procalcitonin 0.17 ng/ml (0-0.5) 08/18/21 05:05 Urine Opiates Screen Neg (Neg) 08/16/21 Unknown Ur Buprenorphine Level Cancelled 08/16/21 10:55 Ur Norbuprenorphine Level Cancelled 08/16/21 10:55 Ur Methadone, Qual Neg (Neg) 08/16/21 Unknown Urine Barbiturates Neg (Neg) 08/16/21 Unknown Ur Phencyclidine (PCP) Neg (Neg) 08/16/21 Unknown U Amphetamin/Meth Scrn Neg (Neg) 08/16/21 Unknown MDMA (Ecstasy) Screen Neg (Neg) 08/16/21 Unknown U Benzodiazepines Scrn Neg (Neg) 08/16/21 Unknown Ur Cocaine Metabolite Neg (Neg) 08/16/21 Unknown U Marijuana (THC) Screen Neg (Neg) 08/16/21 Unknown Drug Screen Comment Cancelled 08/16/21 10:55 COVID-19 [facility] 08/16/21 09:51 SARS-CoV-2, RNA, NAAT NEGATIVE (NEGATIVE) 08/16/21 09:51 Blood Type O Positive 08/16/21 10:42 Blood Type Recheck O Positive 08/17/21 05:40 Antibody Screen NEGATIVE 08/16/21 10:42 Crossmatch See Detail 08/16/21 10:42 Diagnostic Findings Chest x-ray as per my interpretation no congestion, no infiltrate EKG as per my interpretation : Rate 90, NSR, normal axis, T wave abnormality septal leads
[2021-08-18 05:53] LABS: Albumin Level 2.1 gm/dl (3.4-5.0); BUN Creatinine Ratio 18.4 (10-20); Calcium 8.5 mg/dl (8.5-10.1); Creatinine Clr Calc Pharmacy 191.2 ml/min; Est GFR (African American) 139.1 ml/min; Magnesium 2.2 mg/dl (1.8-2.4); Potassium 3.6 mmol/L (3.5-5.1)
[2021-08-18 05:56] LABS: Albumin Globulin Ratio 0.6 (0.9-2); Bilirubin,Total 0.4 mg/dl (0.2-1); Globulin 3.7 gm/dl (2.5-4.0); Total Protein 5.8 gm/dl (6.4-8.2)
[2021-08-18] MEDS ORDERED: POTASSIUM CHLORIDE PWD 20 MEQ PACK PO ONE (06:30)
[2021-08-18] MEDS: guaiFENesin 600 MG TABCR PO SCH ×2 (06:32→20:30)
[2021-08-18 06:52] LABS: Basophils # (auto) 0.02 K/uL (0-0.2); Basophils % (auto) 0.1 %; Hematocrit (blood only) 22.9 % (37-47); Hemoglobin 7.8 g/dL (12.0-16.0); Immature Granulocytes # (auto) 0.08 K/uL (0.00-0.02); Immature Granulocytes % (auto) 0.5 %; Lymphocytes # (auto) 1.67 K/uL (1.2-3.4); Lymphocytes % (auto) 9.8 %; Mean Corpuscular Hemoglobin 29.3 pg (25-34); Mean Corpuscular Hgb Conc 34.1 g/dL (32-36); Mean Corpuscular Volume 86.1 fL (80-100); Mean Platelet Volume 9.5 fL (7.4-10.4); Monocytes # (auto) 0.93 K/uL (0.11-0.59); Monocytes % (auto) 5.4 %; Neutrophils # (auto) 14.37 K/uL (1.4-6.5); Neutrophils % (auto) 84.2 %; Platelet Count 192 K/uL (130-400); RDW Coefficient of Variation 14.8 % (11.5-14.5); RDW Standard Deviation 45.9 fL (36.4-46.3); Red Blood Count 2.66 M/uL (4.2-5.4); White Blood Count 17.07 K/uL (4.8-10.8)
[2021-08-18 06:59] LABS: Allen Test Pos (Pos); Base Excess ABG 1.8 mEq/L (-9-1.8); HCO3 ABG 26 mmol/L (19-24); PCO2 ABG 36 mmHg (35-46); PO2 ABG 73 mmHg (80-95); pH ABG 7.47 (7.35-7.45)
[2021-08-18] MEDS ORDERED: XOPENEX/ATROVENT 1.25mg/0.5MG NEB COMBO NEB SCH (07:00)
[2021-08-18 07:15] LABS: RBC Morphology Unremarkable
[2021-08-18] MEDS: LEVALBUTEROL 1.25MG/0.5ML NEB INH SCH ×3 (08:08→19:24)
[2021-08-18] MEDS: IPRATROPIUM BROMIDE NEB SOLN 0.02% 2.5 ML VIAL INH SCH ×3 (08:08→19:24)
--- NOTE | 2021-08-18 08:23 | XRay Report ---
SINGLE VIEW CHEST CLINICAL HISTORY: Hypoxia. FINDINGS: An AP, portable, upright chest radiograph is obtained. No prior studies are available for c omparison at the time of dictation. The cardiomediastinal silhouette is unremarkable. The lungs and pleural spaces are clear. No pneumothorax is seen. The bony thorax is grossly intact. IMPRESSION: No active disease in the chest. ACT 112: Negative or not required by law. Electronically signed by: Antolin Schaffer M.D. 08/18/2021 8:21 AM
--- NOTE | 2021-08-18 09:42 | Electrocardiogram Report ---
Test Reason : Blood Pressure : / mmHG Vent. Rate : 092 BPM Atrial Rate : 092 BPM P-R Int : 130 ms QRS Dur : 072 ms QT Int : 360 ms P-R-T Axes : 042 063 035 degrees QTc Int : 445 ms Normal sinus rhythm Normal ECG No previous ECGs available Confirmed by Oli Walters ([id number]) on 08/18/2021 9:42:04 AM Referred By: Cecilia Bullock Confirmed By:Oli Walters
[2021-08-18] MEDS: SIMETHICONE 80 MG CHEW PO SCH ×4 (09:58→20:29)
[2021-08-18] MEDS: PRENATAL VITAMIN 1 TAB PO SCH (09:59)
[2021-08-18] MEDS: buprenorphine HCL 2 MG SUBL SL SCH ×2 (09:59→20:29)
[2021-08-18] MEDS: DOCUSATE SODIUM 100 MG CAP PO SCH ×2 (09:59→20:29)
[2021-08-18] MEDS: FERROUS SULFATE 325 MG TAB PO SCH (09:59)
[2021-08-18 11:17] LABS: Hepatitis C Vira RNA (Log) PCR <1.18 NOT DETECTED Log IU/mL (NOT DETECTED); Hepatitis C Viral RNA by PCR <15 NOT DETECTED IU/mL (NOT DETECTED)
--- NOTE | 2021-08-18 11:39 | Obstetrical Progress Note ---
Date of Service August 18, 2021 Assessment & Plan (1) hemorrhage: POD #2 s/p c/sec, PPH, Pulm edema, hx of drug use pt received 2 PRBC- stabel H/H Pulm edema- Medicine on consult Improved oxygen sat after Lasix hx of drug use, smoker- Subutex, nicotine patch Nebulizer tx (2) Pulmonary edema: Subjective Ambulation: ambulating normally Voiding: no voiding problems Passing Gas:: Yes Diet Tolerance:: clear liquids Lochia:: Small Feeding Type:: breast feeding Review of Systems All systems reviewed & are unremarkable except as noted in HPI & below Physical Exam Constitutional WD/WN, vitals as above well developed and well nourished Eyes PERRL, conjunctivae normal, anicteric sclerae ENMT external ear and nose normal, oropharynx normal Neck trachea midline, no thyromegaly Respiratory normal respiratory effort, lungs clear to auscultation Cardiovascular RRR, no murmur, no edema Chest (Breasts) normal inspection/palpation of breasts Gastrointestinal (Abdomen) normal bowel sounds, soft, nontender, no hepatosplenomegaly Musculoskeletal no cyanosis or clubbing, extremities motor strength 5/5 Skin no rashes, warm and dry + incision (Clean,dry and intact) Neurologic patellar DTR's 2+ bilat, sensation intact Psychiatric A+Ox3, euthymic affect Genitourinary normal external appearance Lymphatic no cervical or axillary lymphadenopathy Results & Data ([facility]) Vital Signs (Past 12 Hours) Vital Signs Temp Pulse Resp BP Pulse Ox 08/18/21 08:10 97 H 20 10 L 08/18/21 07:11 36.9 C 90 16 96/59 L 94 08/18/21 06:00 94 08/18/21 05:58 95 08/18/21 05:00 92 08/18/21 04:37 90 20 92 08/18/21 04:30 90 08/18/21 03:57 107 H 20 84 L 08/18/21 03:00 36.7 C 102 H 18 106/68 83 L
[2021-08-18] MEDS ORDERED: bisacodyL 10 MG SUPP PR PRN (13:11)
--- NOTE | 2021-08-18 17:36 | Communication Note ---
Date of Service: August 18, 2021 Patient was seen and examined. Lying in bed with no acute distress. Her breathing felt better and she was saturating well on room air. Her troponin m ildly elevated possible due to demand ischemia hypoxia and severe anemia. Received 2 units PRBC earlier. Currently she states she is feeling better. Most recent hemoglobin 7.8. Echo was done with normal LV function. Left ventricular wall motion is normal. Pulmonary artery is mildly enlarged with EF 60-65%. Echo discussed with Cardiology that said pulmonary artery enlarge can be present in woman. Repeat troponin trending down. Will check h/h and transfuse if needed. Will continue monitor closely. MD Cindi
[2021-08-19] MEDS: IPRATROPIUM BROMIDE NEB SOLN 0.02% 2.5 ML VIAL INH SCH ×4 (01:43→20:43)
[2021-08-19] MEDS: LEVALBUTEROL 1.25MG/0.5ML NEB INH SCH ×4 (01:44→20:43)
[2021-08-19] MEDS: IBUPROFEN 600 MG TAB PO PRN ×5 (04:09→23:54)
[2021-08-19] MEDS: oxyCODONE/ACETAMINOPHEN 5mg/325mg TAB PO PRN ×5 (04:09→23:54)
[2021-08-19] MEDS: SIMETHICONE 80 MG CHEW PO SCH ×4 (08:13→21:07)
[2021-08-19] MEDS: PRENATAL VITAMIN 1 TAB PO SCH (08:13)
[2021-08-19] MEDS: DOCUSATE SODIUM 100 MG CAP PO SCH ×2 (08:24→21:07)
[2021-08-19 08:25] LABS: Buprenorphine, Ur Quant 62 ng/mL (<5); Norbuprenorphine, Ur Qnt 382 ng/mL (<5)
[2021-08-19] MEDS: FERROUS SULFATE 325 MG TAB PO SCH ×2 (08:28→21:05)
[2021-08-19] MEDS: buprenorphine HCL 2 MG SUBL SL SCH ×2 (08:58→21:07)
[2021-08-19] MEDS: guaiFENesin 600 MG TABCR PO SCH ×2 (08:58→21:05)
--- NOTE | 2021-08-19 10:02 | Obstetrical Progress Note ---
Date of Service August 19, 2021 Assessment & Plan Admission and Anticipated Discharge Date Admission Date: August 16, 2021 Subjective Patient is seen and examined. She feels better, complains of unable to eat and sleep due to disturbance from hospital team. Pain is under control with meds Ambulating without dizziness SOB is better. Voiding without difficulty Tolerating regular diet with out N&V Bleeding is minimal No fever/ chills/ CP/ SOB/ N&V/ Leg pain Breast feeding without problems Vital Signs Temp Pulse Resp BP Pulse Ox 08/19/21 07:45 77 16 93 08/19/21 04:15 36.8 C 85 17 109/66 91 08/18/21 23:40 36.8 C 100 H 16 101/63 94 Pulse ox: 91-92% on RA, 94% on 2 lt of O2 Lab Results 08/16/21 08/16/21 08/16/21 Range/Units 09:51 09:51 10:42 WBC (4.8-10.8) K/uL RBC (4.2-5.4) M/uL Hgb (12.0-16.0) g/dL Hct (37-47) % MCV (80-100) fL MCH (25-34) pg MCHC (32-36) g/dL RDW Std Deviation (36.4-46.3) fL RDW Coeff of Mitchell (11.5-14.5) % Plt Count (130-400) K/uL MPV (7.4-10.4) fL Immature Gran % (Auto) % Neut % (Auto) % Lymph % (Auto) % Sevier % (Auto) % Eos % (Auto) % Baso % (Auto) % Neut # (Auto) (1.4-6.5) K/uL Lymph # (Auto) (1.2-3.4) K/uL Sevier # (Auto) (0.11-0.59) K/uL Eos # (Auto) (0-0.5) K/uL Baso # (Auto) (0-0.2) K/uL Immature Gran # (Auto) (0.00-0.02) K/uL Neutrophils % (Manual) % Lymphocytes % (Manual) % Monocytes % (Manual) % Neutrophils # (Manual) (1.4-6.5) K/uL Total Absolute Neuts (1.4-6.5) K/uL Lymphocytes # (Manual) (1.2-3.4) K/uL Total Abs Lymphocytes (1.2-3.4) K/uL Monocytes # (Manual) (0.11-0.59) K/uL RBC Morphology APTT (21.0-31.0) Seconds PTT Ratio ABG pH (7.35-7.45) ABG pCO2 (35-46) mmHg ABG pO2 (80-95) mmHg ABG HCO3 (19-24) mmol/L ABG O2 Saturation (90-95) % ABG Base Excess (-9-1.8) mEq/L Junior Test (Pos) Cord ABG pH (7.1-7.38) Cord ABG pCO2 (39.1-73.5) mmHg Cord ABG pO2 (4.1-31.7) mmHg Cord ABG HCO3 (19.7-28.5) mmol/L Cord ABG Base Excess (-9-1.8) mEq/L Cord ABG O2 Sat (<60) % Cord VBG pH (7.20-7.44) Cord VBG pCO2 (30.4-57.2) mmHg Cord VBG pO2 (14.1-43.3) mmHg Cord VBG HCO3 (18.4-26.8) mmol/L Cord VBG Base Excess (-7.7-1.9) mEq/L Cord VBG O2 Sat (<68) % Barometric Pressure mm/Hg Oxygen Given Blood Gas Comments Sodium (136-145) mmol/L Potassium (3.5-5.1) mmol/L Chloride (98-107) mmol/L Carbon Dioxide (21-32) mmol/L Anion Gap (3-11) BUN (7-18) mg/dl Creatinine (0.6-1.2) mg/dl Est Cr Clr Drug Dosing ml/min Est GFR ( Amer) ml/min Est GFR (Non-Af Amer) ml/min BUN/Creatinine Ratio (10-20) Glucose (70-99) mg/dl Lactate (0.4-2.0) mmol/L Calcium (8.5-10.1) mg/dl Magnesium (1.8-2.4) mg/dl Total Bilirubin (0.2-1) mg/dl AST (15-37) U/L ALT (12-78) U/L Alkaline Phosphatase (45-117) U/L Troponin I (0-0.045) ng/ml Total Protein (6.4-8.2) gm/dl Albumin (3.4-5.0) gm/dl Globulin (2.5-4.0) gm/dl Albumin/Globulin Ratio (0.9-2) Procalcitonin (0-0.5) ng/ml Urine Opiates Screen (Neg) Ur Buprenorphine Level Ur Norbuprenorphine Level Ur Methadone, Qual (Neg) Urine Barbiturates (Neg) Ur Phencyclidine (PCP) (Neg) U Amphetamin/Meth Scrn (Neg) MDMA (Ecstasy) Screen (Neg) U Benzodiazepines Scrn (Neg) Ur Cocaine Metabolite (Neg) U Marijuana (THC) Screen (Neg) Drug Screen Comment [facility]19 [facility] ([facility]) IUs/ml (NOT DETECTED) IU/mL HCV RNA PCR log IUs/ml (NOT DETECTED) Log IU/mL SARS-CoV-2, RNA, NAAT NEGATIVE (NEGATIVE) Blood Type O Positive Blood Type Recheck Antibody Screen NEGATIVE Crossmatch See Detail 08/16/21 08/16/21 08/16/21 Range/Units 10:42 10:55 12:09 WBC 16.79 H (4.8-10.8) K/uL RBC 4.36 (4.2-5.4) M/uL Hgb 13.1 (12.0-16.0) g/dL Hct 38.2 (37-47) % MCV 87.6 (80-100) fL MCH 30.0 (25-34) pg MCHC 34.3 (32-36) g/dL RDW Std Deviation 40.5 (36.4-46.3) fL RDW Coeff of Mitchell 12.6 (11.5-14.5) % Plt Count 262 (130-400) K/uL MPV 10.5 H (7.4-10.4) fL Immature Gran % (Auto) % Neut % (Auto) % Lymph % (Auto) % Sevier % (Auto) % Eos % (Auto) % Baso % (Auto) % Neut # (Auto) (1.4-6.5) K/uL Lymph # (Auto) (1.2-3.4) K/uL Sevier # (Auto) (0.11-0.59) K/uL Eos # (Auto) (0-0.5) K/uL Baso # (Auto) (0-0.2) K/uL Immature Gran # (Auto) (0.00-0.02) K/uL Neutrophils % (Manual) % Lymphocytes % (Manual) % Monocytes % (Manual) % Neutrophils # (Manual) (1.4-6.5) K/uL Total Absolute Neuts (1.4-6.5) K/uL Lymphocytes # (Manual) (1.2-3.4) K/uL Total Abs Lymphocytes (1.2-3.4) K/uL Monocytes # (Manual) (0.11-0.59) K/uL RBC Morphology APTT (21.0-31.0) Seconds PTT Ratio ABG pH (7.35-7.45) ABG pCO2 (35-46) mmHg ABG pO2 (80-95) mmHg ABG HCO3 (19-24) mmol/L ABG O2 Saturation (90-95) % ABG Base Excess (-9-1.8) mEq/L Junior Test (Pos) Cord ABG pH 7.22 (7.1-7.38) Cord ABG pCO2 60 (39.1-73.5) mmHg Cord ABG pO2 16 (4.1-31.7) mmHg Cord ABG HCO3 24 (19.7-28.5) mmol/L Cord ABG Base Excess -4.9 (-9-1.8) mEq/L Cord ABG O2 Sat < 60.0 (<60) % Cord VBG pH (7.20-7.44) Cord VBG pCO2 (30.4-57.2) mmHg Cord VBG pO2 (14.1-43.3) mmHg Cord VBG HCO3 (18.4-26.8) mmol/L Cord VBG Base Excess (-7.7-1.9) mEq/L Cord VBG O2 Sat (<68) % Barometric Pressure 733.9 mm/Hg Oxygen Given Blood Gas Comments MARTINEZ Sodium (136-145) mmol/L Potassium (3.5-5.1) mmol/L Chloride (98-107) mmol/L Carbon Dioxide (21-32) mmol/L Anion Gap (3-11) BUN (7-18) mg/dl Creatinine (0.6-1.2) mg/dl Est Cr Clr Drug Dosing ml/min Est GFR ( Amer) ml/min Est GFR (Non-Af Amer) ml/min BUN/Creatinine Ratio (10-20) Glucose (70-99) mg/dl Lactate (0.4-2.0) mmol/L Calcium (8.5-10.1) mg/dl Magnesium (1.8-2.4) mg/dl Total Bilirubin (0.2-1) mg/dl AST (15-37) U/L ALT (12-78) U/L Alkaline Phosphatase (45-117) U/L Troponin I (0-0.045) ng/ml Total Protein (6.4-8.2) gm/dl Albumin (3.4-5.0) gm/dl Globulin (2.5-4.0) gm/dl Albumin/Globulin Ratio (0.9-2) Procalcitonin (0-0.5) ng/ml Urine Opiates Screen (Neg) Ur Buprenorphine Level Cancelled Ur Norbuprenorphine Level Cancelled Ur Methadone, Qual (Neg) Urine Barbiturates (Neg) Ur Phencyclidine (PCP) (Neg) U Amphetamin/Meth Scrn (Neg) MDMA (Ecstasy) Screen (Neg) U Benzodiazepines Scrn (Neg) Ur Cocaine Metabolite (Neg) U Marijuana (THC) Screen (Neg) Drug Screen Comment Cancelled COVID-19 Eval Order HCV RNA (PCR) IUs/ml <15 NOT DETECTED (NOT DETECTED) IU/mL HCV RNA PCR log IUs/ml <1.18 NOT DETECTED (NOT DETECTED) Log IU/mL SARS-CoV-2, RNA, NAAT (NEGATIVE) Blood Type Blood Type Recheck Antibody Screen Crossmatch 08/16/21 08/16/21 08/16/21 Range/Units 12:09 15:35 Unknown WBC 40.12 H* D (4.8-10.8) K/uL RBC 3.42 L (4.2-5.4) M/uL Hgb 10.1 L D (12.0-16.0) g/dL Hct 30.0 L (37-47) % MCV 87.7 (80-100) fL MCH 29.5 (25-34) pg MCHC 33.7 (32-36) g/dL RDW Std Deviation 41.5 (36.4-46.3) fL RDW Coeff of Mitchell 12.8 (11.5-14.5) % Plt Count 312 (130-400) K/uL MPV 10.3 (7.4-10.4) fL Immature Gran % (Auto) 0.6 % Neut % (Auto) 90.2 % Lymph % (Auto) 4.2 % Sevier % (Auto) 5.0 % Eos % (Auto) 0.0 % Baso % (Auto) 0.0 % Neut # (Auto) 36.16 H (1.4-6.5) K/uL Lymph # (Auto) 1.68 (1.2-3.4) K/uL Sevier # (Auto) 1.99 H (0.11-0.59) K/uL Eos # (Auto) 0.01 (0-0.5) K/uL Baso # (Auto) 0.02 (0-0.2) K/uL Immature Gran # (Auto) 0.26 H (0.00-0.02) K/uL Neutrophils % (Manual) % Lymphocytes % (Manual) % Monocytes % (Manual) % Neutrophils # (Manual) (1.4-6.5) K/uL Total Absolute Neuts (1.4-6.5) K/uL Lymphocytes # (Manual) (1.2-3.4) K/uL Total Abs Lymphocytes (1.2-3.4) K/uL Monocytes # (Manual) (0.11-0.59) K/uL RBC Morphology APTT (21.0-31.0) Seconds PTT Ratio ABG pH (7.35-7.45) ABG pCO2 (35-46) mmHg ABG pO2 (80-95) mmHg ABG HCO3 (19-24) mmol/L ABG O2 Saturation (90-95) % ABG Base Excess (-9-1.8) mEq/L Junior Test (Pos) Cord ABG pH (7.1-7.38) Cord ABG pCO2 (39.1-73.5) mmHg Cord ABG pO2 (4.1-31.7) mmHg Cord ABG HCO3 (19.7-28.5) mmol/L Cord ABG Base Excess (-9-1.8) mEq/L Cord ABG O2 Sat (<60) % Cord VBG pH 7.29 (7.20-7.44) Cord VBG pCO2 52 (30.4-57.2) mmHg Cord VBG pO2 23 (14.1-43.3) mmHg Cord VBG HCO3 24 (18.4-26.8) mmol/L Cord VBG Base Excess -3.1 (-7.7-1.9) mEq/L Cord VBG O2 Sat < 60.0 (<68) % Barometric Pressure 734.1 mm/Hg Oxygen Given Blood Gas Comments MARTINEZ Sodium (136-145) mmol/L Potassium (3.5-5.1) mmol/L Chloride (98-107) mmol/L Carbon Dioxide (21-32) mmol/L Anion Gap (3-11) BUN (7-18) mg/dl Creatinine (0.6-1.2) mg/dl Est Cr Clr Drug Dosing ml/min Est GFR ( Amer) ml/min Est GFR (Non-Af Amer) ml/min BUN/Creatinine Ratio (10-20) Glucose (70-99) mg/dl Lactate (0.4-2.0) mmol/L Calcium (8.5-10.1) mg/dl Magnesium (1.8-2.4) mg/dl Total Bilirubin (0.2-1) mg/dl AST (15-37) U/L ALT (12-78) U/L Alkaline Phosphatase (45-117) U/L Troponin I (0-0.045) ng/ml Total Protein (6.4-8.2) gm/dl Albumin (3.4-5.0) gm/dl Globulin (2.5-4.0) gm/dl Albumin/Globulin Ratio (0.9-2) Procalcitonin (0-0.5) ng/ml Urine Opiates Screen Neg (Neg) Ur Buprenorphine Level Ur Norbuprenorphine Level Ur Methadone, Qual Neg (Neg) Urine Barbiturates Neg (Neg) Ur Phencyclidine (PCP) Neg (Neg) U Amphetamin/Meth Scrn Neg (Neg) MDMA (Ecstasy) Screen Neg (Neg) U Benzodiazepines Scrn Neg (Neg) Ur Cocaine Metabolite Neg (Neg) U Marijuana (THC) Screen Neg (Neg) Drug Screen Comment COVID-19 Eval Order HCV RNA (PCR) IUs/ml (NOT DETECTED) IU/mL HCV RNA PCR log IUs/ml (NOT DETECTED) Log IU/mL SARS-CoV-2, RNA, NAAT (NEGATIVE) Blood Type Blood Type Recheck Antibody Screen Crossmatch 08/16/21 08/17/21 08/17/21 Range/Units Unknown 05:40 05:40 WBC 25.85 H D (4.8-10.8) K/uL RBC 1.94 L (4.2-5.4) M/uL Hgb 5.8 L* D (12.0-16.0) g/dL Hct 16.8 L* (37-47) % MCV 86.6 (80-100) fL MCH 29.9 (25-34) pg MCHC 34.5 (32-36) g/dL RDW Std Deviation 40.8 (36.4-46.3) fL RDW Coeff of Mitchell 13.0 (11.5-14.5) % Plt Count 211 (130-400) K/uL MPV 9.9 (7.4-10.4) fL Immature Gran % (Auto) % Neut % (Auto) % Lymph % (Auto) % Sevier % (Auto) % Eos % (Auto) % Baso % (Auto) % Neut # (Auto) (1.4-6.5) K/uL Lymph # (Auto) (1.2-3.4) K/uL Sevier # (Auto) (0.11-0.59) K/uL Eos # (Auto) (0-0.5) K/uL Baso # (Auto) (0-0.2) K/uL Immature Gran # (Auto) (0.00-0.02) K/uL Neutrophils % (Manual) 85.1 % Lymphocytes % (Manual) 11.4 % Monocytes % (Manual) 3.5 % Neutrophils # (Manual) 22.00 H (1.4-6.5) K/uL Total Absolute Neuts 22.00 H (1.4-6.5) K/uL Lymphocytes # (Manual) 2.95 (1.2-3.4) K/uL Total Abs Lymphocytes 2.95 (1.2-3.4) K/uL Monocytes # (Manual) 0.90 H (0.11-0.59) K/uL RBC Morphology Unremarkable APTT (21.0-31.0) Seconds PTT Ratio ABG pH (7.35-7.45) ABG pCO2 (35-46) mmHg ABG pO2 (80-95) mmHg ABG HCO3 (19-24) mmol/L ABG O2 Saturation (90-95) % ABG Base Excess (-9-1.8) mEq/L Junior Test (Pos) Cord ABG pH (7.1-7.38) Cord ABG pCO2 (39.1-73.5) mmHg Cord ABG pO2 (4.1-31.7) mmHg Cord ABG HCO3 (19.7-28.5) mmol/L Cord ABG Base Excess (-9-1.8) mEq/L Cord ABG O2 Sat (<60) % Cord VBG pH (7.20-7.44) Cord VBG pCO2 (30.4-57.2) mmHg Cord VBG pO2 (14.1-43.3) mmHg Cord VBG HCO3 (18.4-26.8) mmol/L Cord VBG Base Excess (-7.7-1.9) mEq/L Cord VBG O2 Sat (<68) % Barometric Pressure mm/Hg Oxygen Given Blood Gas Comments Sodium (136-145) mmol/L Potassium (3.5-5.1) mmol/L Chloride (98-107) mmol/L Carbon Dioxide (21-32) mmol/L Anion Gap (3-11) BUN (7-18) mg/dl Creatinine (0.6-1.2) mg/dl Est Cr Clr Drug Dosing ml/min Est GFR ( Amer) ml/min Est GFR (Non-Af Amer) ml/min BUN/Creatinine Ratio (10-20) Glucose (70-99) mg/dl Lactate (0.4-2.0) mmol/L Calcium (8.5-10.1) mg/dl Magnesium (1.8-2.4) mg/dl Total Bilirubin (0.2-1) mg/dl AST (15-37) U/L ALT (12-78) U/L Alkaline Phosphatase (45-117) U/L Troponin I (0-0.045) ng/ml Total Protein (6.4-8.2) gm/dl Albumin (3.4-5.0) gm/dl Globulin (2.5-4.0) gm/dl Albumin/Globulin Ratio (0.9-2) Procalcitonin (0-0.5) ng/ml Urine Opiates Screen (Neg) Ur Buprenorphine Level 62 H Ur Norbuprenorphine Level 382 H Ur Methadone, Qual (Neg) Urine Barbiturates (Neg) Ur Phencyclidine (PCP) (Neg) U Amphetamin/Meth Scrn (Neg) MDMA (Ecstasy) Screen (Neg) U Benzodiazepines Scrn (Neg) Ur Cocaine Metabolite (Neg) U Marijuana (THC) Screen (Neg) Drug Screen Comment SEE NOTE COVID-19 Eval Order HCV RNA (PCR) IUs/ml (NOT DETECTED) IU/mL HCV RNA PCR log IUs/ml (NOT DETECTED) Log IU/mL SARS-CoV-2, RNA, NAAT (NEGATIVE) Blood Type Blood Type Recheck O Positive Antibody Screen Crossmatch 08/17/21 08/17/21 08/18/21 Range/Units 06:45 17:42 05:05 WBC (4.8-10.8) K/uL RBC (4.2-5.4) M/uL Hgb 5.8 L* 7.5 L (12.0-16.0) g/dL Hct 16.6 L* 22.2 L (37-47) % MCV (80-100) fL MCH (25-34) pg MCHC (32-36) g/dL RDW Std Deviation (36.4-46.3) fL RDW Coeff of Mitchell (11.5-14.5) % Plt Count (130-400) K/uL MPV (7.4-10.4) fL Immature Gran % (Auto) % Neut % (Auto) % Lymph % (Auto) % Sevier % (Auto) % Eos % (Auto) % Baso % (Auto) % Neut # (Auto) (1.4-6.5) K/uL Lymph # (Auto) (1.2-3.4) K/uL Sevier # (Auto) (0.11-0.59) K/uL Eos # (Auto) (0-0.5) K/uL Baso # (Auto) (0-0.2) K/uL Immature Gran # (Auto) (0.00-0.02) K/uL Neutrophils % (Manual) % Lymphocytes % (Manual) % Monocytes % (Manual) % Neutrophils # (Manual) (1.4-6.5) K/uL Total Absolute Neuts (1.4-6.5) K/uL Lymphocytes # (Manual) (1.2-3.4) K/uL Total Abs Lymphocytes (1.2-3.4) K/uL Monocytes # (Manual) (0.11-0.59) K/uL RBC Morphology APTT (21.0-31.0) Seconds PTT Ratio ABG pH (7.35-7.45) ABG pCO2 (35-46) mmHg ABG pO2 (80-95) mmHg ABG HCO3 (19-24) mmol/L ABG O2 Saturation (90-95) % ABG Base Excess (-9-1.8) mEq/L Junior Test (Pos) Cord ABG pH (7.1-7.38) Cord ABG pCO2 (39.1-73.5) mmHg Cord ABG pO2 (4.1-31.7) mmHg Cord ABG HCO3 (19.7-28.5) mmol/L Cord ABG Base Excess (-9-1.8) mEq/L Cord ABG O2 Sat (<60) % Cord VBG pH (7.20-7.44) Cord VBG pCO2 (30.4-57.2) mmHg Cord VBG pO2 (14.1-43.3) mmHg Cord VBG HCO3 (18.4-26.8) mmol/L Cord VBG Base Excess (-7.7-1.9) mEq/L Cord VBG O2 Sat (<68) % Barometric Pressure mm/Hg Oxygen Given Blood Gas Comments Sodium (136-145) mmol/L Potassium (3.5-5.1) mmol/L Chloride (98-107) mmol/L Carbon Dioxide (21-32) mmol/L Anion Gap (3-11) BUN (7-18) mg/dl Creatinine (0.6-1.2) mg/dl Est Cr Clr Drug Dosing ml/min Est GFR ( Amer) ml/min Est GFR (Non-Af Amer) ml/min BUN/Creatinine Ratio (10-20) Glucose (70-99) mg/dl Lactate 0.9 (0.4-2.0) mmol/L Calcium (8.5-10.1) mg/dl Magnesium (1.8-2.4) mg/dl Total Bilirubin (0.2-1) mg/dl AST (15-37) U/L ALT (12-78) U/L Alkaline Phosphatase (45-117) U/L Troponin I (0-0.045) ng/ml Total Protein (6.4-8.2) gm/dl Albumin (3.4-5.0) gm/dl Globulin (2.5-4.0) gm/dl Albumin/Globulin Ratio (0.9-2) Procalcitonin (0-0.5) ng/ml Urine Opiates Screen (Neg) Ur Buprenorphine Level Ur Norbuprenorphine Level Ur Methadone, Qual (Neg) Urine Barbiturates (Neg) Ur Phencyclidine (PCP) (Neg) U Amphetamin/Meth Scrn (Neg) MDMA (Ecstasy) Screen (Neg) U Benzodiazepines Scrn (Neg) Ur Cocaine Metabolite (Neg) U Marijuana (THC) Screen (Neg) Drug Screen Comment COVID-19 Eval Order HCV RNA (PCR) IUs/ml (NOT DETECTED) IU/mL HCV RNA PCR log IUs/ml (NOT DETECTED) Log IU/mL SARS-CoV-2, RNA, NAAT (NEGATIVE) Blood Type Blood Type Recheck Antibody Screen Crossmatch 08/18/21 08/18/21 08/18/21 Range/Units 05:05 05:05 05:05 WBC (4.8-10.8) K/uL RBC (4.2-5.4) M/uL Hgb (12.0-16.0) g/dL Hct (37-47) % MCV (80-100) fL MCH (25-34) pg MCHC (32-36) g/dL RDW Std Deviation (36.4-46.3) fL RDW Coeff of Mitchell (11.5-14.5) % Plt Count (130-400) K/uL MPV (7.4-10.4) fL Immature Gran % (Auto) % Neut % (Auto) % Lymph % (Auto) % Sevier % (Auto) % Eos % (Auto) % Baso % (Auto) % Neut # (Auto) (1.4-6.5) K/uL Lymph # (Auto) (1.2-3.4) K/uL Sevier # (Auto) (0.11-0.59) K/uL Eos # (Auto) (0-0.5) K/uL Baso # (Auto) (0-0.2) K/uL Immature Gran # (Auto) (0.00-0.02) K/uL Neutrophils % (Manual) % Lymphocytes % (Manual) % Monocytes % (Manual) % Neutrophils # (Manual) (1.4-6.5) K/uL Total Absolute Neuts (1.4-6.5) K/uL Lymphocytes # (Manual) (1.2-3.4) K/uL Total Abs Lymphocytes (1.2-3.4) K/uL Monocytes # (Manual) (0.11-0.59) K/uL RBC Morphology APTT 24.3 (21.0-31.0) Seconds PTT Ratio 0.9 ABG pH (7.35-7.45) ABG pCO2 (35-46) mmHg ABG pO2 (80-95) mmHg ABG HCO3 (19-24) mmol/L ABG O2 Saturation (90-95) % ABG Base Excess (-9-1.8) mEq/L Junior Test (Pos) Cord ABG pH (7.1-7.38) Cord ABG pCO2 (39.1-73.5) mmHg Cord ABG pO2 (4.1-31.7) mmHg Cord ABG HCO3 (19.7-28.5) mmol/L Cord ABG Base Excess (-9-1.8) mEq/L Cord ABG O2 Sat (<60) % Cord VBG pH (7.20-7.44) Cord VBG pCO2 (30.4-57.2) mmHg Cord VBG pO2 (14.1-43.3) mmHg Cord VBG HCO3 (18.4-26.8) mmol/L Cord VBG Base Excess (-7.7-1.9) mEq/L Cord VBG O2 Sat (<68) % Barometric Pressure mm/Hg Oxygen Given Blood Gas Comments Sodium 141 (136-145) mmol/L Potassium 3.6 (3.5-5.1) mmol/L Chloride 109 H (98-107) mmol/L Carbon Dioxide 25 (21-32) mmol/L Anion Gap 7.0 (3-11) BUN 12 (7-18) mg/dl Creatinine 0.65 (0.6-1.2) mg/dl Est Cr Clr Drug Dosing 191.2 ml/min Est GFR ( Amer) 139.1 ml/min Est GFR (Non-Af Amer) 120.0 ml/min BUN/Creatinine Ratio 18.4 (10-20) Glucose 90 (70-99) mg/dl Lactate (0.4-2.0) mmol/L Calcium 8.5 (8.5-10.1) mg/dl Magnesium 2.2 (1.8-2.4) mg/dl Total Bilirubin 0.4 (0.2-1) mg/dl AST 53 H (15-37) U/L ALT 18 (12-78) U/L Alkaline Phosphatase 107 (45-117) U/L Troponin I (0-0.045) ng/ml Total Protein 5.8 L (6.4-8.2) gm/dl Albumin 2.1 L (3.4-5.0) gm/dl Globulin 3.7 (2.5-4.0) gm/dl Albumin/Globulin Ratio 0.6 L (0.9-2) Procalcitonin 0.17 (0-0.5) ng/ml Urine Opiates Screen (Neg) Ur Buprenorphine Level Ur Norbuprenorphine Level Ur Methadone, Qual (Neg) Urine Barbiturates (Neg) Ur Phencyclidine (PCP) (Neg) U Amphetamin/Meth Scrn (Neg) MDMA (Ecstasy) Screen (Neg) U Benzodiazepines Scrn (Neg) Ur Cocaine Metabolite (Neg) U Marijuana (THC) Screen (Neg) Drug Screen Comment COVID-19 Eval Order HCV RNA (PCR) IUs/ml (NOT DETECTED) IU/mL HCV RNA PCR log IUs/ml (NOT DETECTED) Log IU/mL SARS-CoV-2, RNA, NAAT (NEGATIVE) Blood Type Blood Type Recheck Antibody Screen Crossmatch 08/18/21 08/18/21 08/18/21 Range/Units 06:42 06:42 06:42 WBC 17.07 H (4.8-10.8) K/uL RBC 2.66 L (4.2-5.4) M/uL Hgb 7.8 L (12.0-16.0) g/dL Hct 22.9 L (37-47) % MCV 86.1 (80-100) fL MCH 29.3 (25-34) pg MCHC 34.1 (32-36) g/dL RDW Std Deviation 45.9 (36.4-46.3) fL RDW Coeff of Mitchell 14.8 H (11.5-14.5) % Plt Count 192 (130-400) K/uL MPV 9.5 (7.4-10.4) fL Immature Gran % (Auto) 0.5 % Neut % (Auto) 84.2 % Lymph % (Auto) 9.8 % Sevier % (Auto) 5.4 % Eos % (Auto) 0.0 % Baso % (Auto) 0.1 % Neut # (Auto) 14.37 H (1.4-6.5) K/uL Lymph # (Auto) 1.67 (1.2-3.4) K/uL Sevier # (Auto) 0.93 H (0.11-0.59) K/uL Eos # (Auto) 0.00 (0-0.5) K/uL Baso # (Auto) 0.02 (0-0.2) K/uL Immature Gran # (Auto) 0.08 H (0.00-0.02) K/uL Neutrophils % (Manual) % Lymphocytes % (Manual) % Monocytes % (Manual) % Neutrophils # (Manual) (1.4-6.5) K/uL Total Absolute Neuts (1.4-6.5) K/uL Lymphocytes # (Manual) (1.2-3.4) K/uL Total Abs Lymphocytes (1.2-3.4) K/uL Monocytes # (Manual) (0.11-0.59) K/uL RBC Morphology Unremarkable APTT (21.0-31.0) Seconds PTT Ratio ABG pH 7.47 H (7.35-7.45) ABG pCO2 36 (35-46) mmHg ABG pO2 73 L (80-95) mmHg ABG HCO3 26 H (19-24) mmol/L ABG O2 Saturation 93.0 (90-95) % ABG Base Excess 1.8 (-9-1.8) mEq/L Junior Test Pos (Pos) Cord ABG pH (7.1-7.38) Cord ABG pCO2 (39.1-73.5) mmHg Cord ABG pO2 (4.1-31.7) mmHg Cord ABG HCO3 (19.7-28.5) mmol/L Cord ABG Base Excess (-9-1.8) mEq/L Cord ABG O2 Sat (<60) % Cord VBG pH (7.20-7.44) Cord VBG pCO2 (30.4-57.2) mmHg Cord VBG pO2 (14.1-43.3) mmHg Cord VBG HCO3 (18.4-26.8) mmol/L Cord VBG Base Excess (-7.7-1.9) mEq/L Cord VBG O2 Sat (<68) % Barometric Pressure 733.9 mm/Hg Oxygen Given 5 Blood Gas Comments Sodium (136-145) mmol/L Potassium (3.5-5.1) mmol/L Chloride (98-107) mmol/L Carbon Dioxide (21-32) mmol/L Anion Gap (3-11) BUN (7-18) mg/dl Creatinine (0.6-1.2) mg/dl Est Cr Clr Drug Dosing ml/min Est GFR ( Amer) ml/min Est GFR (Non-Af Amer) ml/min BUN/Creatinine Ratio (10-20) Glucose (70-99) mg/dl Lactate (0.4-2.0) mmol/L Calcium (8.5-10.1) mg/dl Magnesium (1.8-2.4) mg/dl Total Bilirubin (0.2-1) mg/dl AST (15-37) U/L ALT (12-78) U/L Alkaline Phosphatase (45-117) U/L Troponin I 0.241 H* (0-0.045) ng/ml Total Protein (6.4-8.2) gm/dl Albumin (3.4-5.0) gm/dl Globulin (2.5-4.0) gm/dl Albumin/Globulin Ratio (0.9-2) Procalcitonin (0-0.5) ng/ml Urine Opiates Screen (Neg) Ur Buprenorphine Level Ur Norbuprenorphine Level Ur Methadone, Qual (Neg) Urine Barbiturates (Neg) Ur Phencyclidine (PCP) (Neg) U Amphetamin/Meth Scrn (Neg) MDMA (Ecstasy) Screen (Neg) U Benzodiazepines Scrn (Neg) Ur Cocaine Metabolite (Neg) U Marijuana (THC) Screen (Neg) Drug Screen Comment COVID-19 Eval Order HCV RNA (PCR) IUs/ml (NOT DETECTED) IU/mL HCV RNA PCR log IUs/ml (NOT DETECTED) Log IU/mL SARS-CoV-2, RNA, NAAT (NEGATIVE) Blood Type Blood Type Recheck Antibody Screen Crossmatch 08/18/21 Range/Units 11:10 WBC (4.8-10.8) K/uL RBC (4.2-5.4) M/uL Hgb (12.0-16.0) g/dL Hct (37-47) % MCV (80-100) fL MCH (25-34) pg MCHC (32-36) g/dL RDW Std Deviation (36.4-46.3) fL RDW Coeff of Mitchell (11.5-14.5) % Plt Count (130-400) K/uL MPV (7.4-10.4) fL Immature Gran % (Auto) % Neut % (Auto) % Lymph % (Auto) % Sevier % (Auto) % Eos % (Auto) % Baso % (Auto) % Neut # (Auto) (1.4-6.5) K/uL Lymph # (Auto) (1.2-3.4) K/uL Sevier # (Auto) (0.11-0.59) K/uL Eos # (Auto) (0-0.5) K/uL Baso # (Auto) (0-0.2) K/uL Immature Gran # (Auto) (0.00-0.02) K/uL Neutrophils % (Manual) % Lymphocytes % (Manual) % Monocytes % (Manual) % Neutrophils # (Manual) (1.4-6.5) K/uL Total Absolute Neuts (1.4-6.5) K/uL Lymphocytes # (Manual) (1.2-3.4) K/uL Total Abs Lymphocytes (1.2-3.4) K/uL Monocytes # (Manual) (0.11-0.59) K/uL RBC Morphology APTT (21.0-31.0) Seconds PTT Ratio ABG pH (7.35-7.45) ABG pCO2 (35-46) mmHg ABG pO2 (80-95) mmHg ABG HCO3 (19-24) mmol/L ABG O2 Saturation (90-95) % ABG Base Excess (-9-1.8) mEq/L Junior Test (Pos) Cord ABG pH (7.1-7.38) Cord ABG pCO2 (39.1-73.5) mmHg Cord ABG pO2 (4.1-31.7) mmHg Cord ABG HCO3 (19.7-28.5) mmol/L Cord ABG Base Excess (-9-1.8) mEq/L Cord ABG O2 Sat (<60) % Cord VBG pH (7.20-7.44) Cord VBG pCO2 (30.4-57.2) mmHg Cord VBG pO2 (14.1-43.3) mmHg Cord VBG HCO3 (18.4-26.8) mmol/L Cord VBG Base Excess (-7.7-1.9) mEq/L Cord VBG O2 Sat (<68) % Barometric Pressure mm/Hg Oxygen Given Blood Gas Comments Sodium (136-145) mmol/L Potassium (3.5-5.1) mmol/L Chloride (98-107) mmol/L Carbon Dioxide (21-32) mmol/L Anion Gap (3-11) BUN (7-18) mg/dl Creatinine (0.6-1.2) mg/dl Est Cr Clr Drug Dosing ml/min Est GFR ( Amer) ml/min Est GFR (Non-Af Amer) ml/min BUN/Creatinine Ratio (10-20) Glucose (70-99) mg/dl Lactate (0.4-2.0) mmol/L Calcium (8.5-10.1) mg/dl Magnesium (1.8-2.4) mg/dl Total Bilirubin (0.2-1) mg/dl AST (15-37) U/L ALT (12-78) U/L Alkaline Phosphatase (45-117) U/L Troponin I 0.186 H* (0-0.045) ng/ml Total Protein (6.4-8.2) gm/dl Albumin (3.4-5.0) gm/dl Globulin (2.5-4.0) gm/dl Albumin/Globulin Ratio (0.9-2) Procalcitonin (0-0.5) ng/ml Urine Opiates Screen (Neg) Ur Buprenorphine Level Ur Norbuprenorphine Level Ur Methadone, Qual (Neg) Urine Barbiturates (Neg) Ur Phencyclidine (PCP) (Neg) U Amphetamin/Meth Scrn (Neg) MDMA (Ecstasy) Screen (Neg) U Benzodiazepines Scrn (Neg) Ur Cocaine Metabolite (Neg) U Marijuana (THC) Screen (Neg) Drug Screen Comment COVID-19 Eval Order HCV RNA (PCR) IUs/ml (NOT DETECTED) IU/mL HCV RNA PCR log IUs/ml (NOT DETECTED) Log IU/mL SARS-CoV-2, RNA, NAAT (NEGATIVE) Blood Type Blood Type Recheck Antibody Screen Crossmatch PE: General: Alert, orientedx3, NAD CVS: S1S2 RRR Lungs: diffuse wheezing BL Abd: soft, NT, fundus firm, below Umbilicus, incision C/D/I Perineum intact, Lochia rubra minimal Ext; NT, no edema AP: 31 yo yo s/p RCS, ppd# 3, pp hemorrhage, s/p Bakri baloon placement, 2 units of PRBCC h/o smoking, asthma,medicine on board VSS Afebrile doing well H&H stable Await medicine follow up for d/c plan Continue routine care All questions were answered Results & Data ([facility]) Vital Signs (Past 12 Hours) Vital Signs Temp Pulse Resp BP Pulse Ox 08/19/21 07:45 77 16 93 08/19/21 04:15 36.8 C 85 17 109/66 91 08/18/21 23:40 36.8 C 100 H 16 101/63 94
[2021-08-19 11:14] LABS: Hematocrit (blood only) 20.1 % (37-47); Hemoglobin 6.8 g/dL (12.0-16.0); Mean Corpuscular Hemoglobin 29.7 pg (25-34); Mean Corpuscular Hgb Conc 33.8 g/dL (32-36); Mean Corpuscular Volume 87.8 fL (80-100); Mean Platelet Volume 8.9 fL (7.4-10.4); Platelet Count 215 K/uL (130-400); RDW Coefficient of Variation 14.6 % (11.5-14.5); RDW Standard Deviation 46.1 fL (36.4-46.3); Red Blood Count 2.29 M/uL (4.2-5.4); White Blood Count 11.07 K/uL (4.8-10.8)
[2021-08-19] MEDS ORDERED: SODIUM CHLORIDE 0.9% 250 ML IV PRN ×2 (11:48)
[2021-08-19] MEDS ORDERED: ACETAMINOPHEN 325 MG TAB PO PRN (11:51)
--- NOTE | 2021-08-19 11:54 | Obstetrical Progress Note ---
Date of Service August 19, 2021 Assessment & Plan Admission and Anticipated Discharge Date Admission Date: August 16, 2021 Subjective Her repeat Hb came back at 6.7 Still low O2 on 2 lt, increased to 4 lt and Pulse ox is 97% Discussed the risks and benefits of blood transfusion She understood all and signed and informed consent. Medicine is notified for f/u exam and recommendations. All questions were answered Continue to monitor closely Results & Data ([facility]) Vital Signs (Past 12 Hours) Vital Signs Temp Pulse Resp BP Pulse Ox 08/19/21 08:15 36.5 C 72 16 107/72 92 08/19/21 07:45 77 16 93 08/19/21 04:15 36.8 C 85 17 109/66 91
[2021-08-19] MEDS ORDERED: diphenhydrAMINE Capsule 25 MG CAP PO SCH (12:00)
[2021-08-19] MEDS ORDERED: diphenhydrAMINE Capsule 25 MG CAP PO ONE (12:30)
[2021-08-19] MEDS ORDERED: Nursing to Pharmacy Communication SCH (12:30)
[2021-08-19] MEDS: FUROSEMIDE 20 MG TAB PO SCH ×2 (12:41→17:19)
[2021-08-19 22:43] LABS: Hematocrit (blood only) 29.2 % (37-47); Hemoglobin 9.9 g/dL (12.0-16.0)
--- NOTE | 2021-08-19 23:53 | Hospitalist Progress Note ---
Date of Service August 19, 2021 Assessment & Plan (1) Acute respiratory failure: Plan: Hypoxemia Possible related to anemia/ fluid overload CXR no active disease in the chest Received Lasix IV yesterday breathing improved Currently on Lasix 20mg PO BID as per OBGYN Continue monitor closely (2) Elevated troponin: Plan: Mostly due to demand ischemia due to anemia and hypoxia Troponin trending down Echo showed normal LV function, no wall motion abnormality . EF 60-65% Asymptomatic currently (3) 41 weeks gestation of : Plan: Management as per OB Anemia Mostly due to hemorrhage Hgb dropped to 6.7 today Type and cross and plan to get 2 units PRBC ( 4 units total received during ho spital course ) Continue monitor H/H Ongoing tobacco abuse Counseling on smoking cessation DVT prophylaxis on SCD CODE status Full code Admission and Anticipated Discharge Date Admission Date: August 16, 2021 Subjective Patient was seen and examined for follow-up shortness of breath, chest pain and anemia Lying in bed with no distress Pt said that she feels fine Her hemoglobin dropped to 6.8 Denies any chest pain, palpitation, dizziness and SOB Review of Systems Review of Systems: All systems reviewed & are unremarkable except as noted in Subjective Physical Exam Physical Exam: General- No acute distress Head- atraumatic Eyes- PERRL, EOMI, ENT- oropharynx clear Neck- supple, no JVD Lungs- clear to auscultation Heart- regular rhythm; no murmur Abdomen- normal bowel sounds, +incision Extremities- no calf tenderness Neuro- alert, oriented x 3; PERRL, EOMI; no facial palsy; no dysarthria Skin- warm & dry Results & Data Results & Data ([facility]) Vital Signs (Past 12 Hours) Vital Signs Temp Pulse Pulse Resp BP BP Pulse Ox 08/19/21 21:53 36.9 C 91 H 18 105/69 96 08/19/21 20:53 36.9 C 91 H 18 97/63 L 08/19/21 20:44 97 H 16 96 08/19/21 20:02 36.9 C 103 H 18 99/66 L 96 08/19/21 19:30 36.8 C 103 H 103 H 18 92/61 L 92/61 L 96 08/19/21 19:00 36.8 C 103 H 20 95/64 L 96 08/19/21 18:45 96 08/19/21 18:30 36.8 C 103 H 18 103/59 L 95 08/19/21 18:17 36.9 C 103 H 20 100/63 95 08/19/21 17:59 36.8 C 108 H 20 113/55 L 95 08/19/21 17:28 95 08/19/21 17:00 36.7 C 93 H 18 96/56 L 96 08/19/21 16:00 36.8 C 93 H 16 97/57 L 95 08/19/21 15:30 36.8 C 79 16 103/67 97 08/19/21 15:00 36.8 C 78 18 105/64 95 08/19/21 14:45 36.8 C 76 76 16 100/61 100/61 95 08/19/21 14:32 36.9 C 93 H 16 108/66 97 08/19/21 12:58 93 H 18 97 08/19/21 12:20 36.5 C 90 18 118/77 96
[2021-08-20] MEDS: LEVALBUTEROL 1.25MG/0.5ML NEB INH SCH ×3 (00:38→12:28)
[2021-08-20] MEDS: IPRATROPIUM BROMIDE NEB SOLN 0.02% 2.5 ML VIAL INH SCH ×3 (00:38→12:28)
[2021-08-20] MEDS: FERROUS SULFATE 325 MG TAB PO SCH (08:11)
[2021-08-20] MEDS: IBUPROFEN 600 MG TAB PO PRN ×2 (08:11→12:52)
[2021-08-20] MEDS: DOCUSATE SODIUM 100 MG CAP PO SCH (08:12)
[2021-08-20] MEDS: FUROSEMIDE 20 MG TAB PO SCH (08:12)
[2021-08-20] MEDS: SIMETHICONE 80 MG CHEW PO SCH ×2 (08:13→12:50)
[2021-08-20 08:37] LABS: Hematocrit (blood only) 29.5 % (37-47); Hemoglobin 9.8 g/dL (12.0-16.0)
[2021-08-20] MEDS: PRENATAL VITAMIN 1 TAB PO SCH (08:57)
[2021-08-20] MEDS: buprenorphine HCL 2 MG SUBL SL SCH (08:58)
--- NOTE | 2021-08-20 10:44 | Obstetrical Progress Note ---
Date of Service August 20, 2021 Assessment & Plan (1) hemorrhage: POD #2 s/p c/sec, PPH, Pulm edema, hx of drug use pt received 2 PRBC- stabel H/H Pulm edema- Medicine on consult Improved oxygen sat after Lasix hx of drug use, smoker- Subutex, nicotine patch Nebulizer tx (2) Pulmonary edema: Physical Exam Constitutional WD/WN, vitals as above Eyes PERRL, conjunctivae normal, anicteric sclerae ENMT external ear and nose normal, oropharynx normal Neck trachea midline, no thyromegaly Respiratory Rales and rhonchi in both lungs. worse on left lung Cardiovascular RRR, no murmur, no edema Chest (Breasts) normal inspection/palpation of breasts Gastrointestinal (Abdomen) normal bowel sounds, soft, nontender, no hepatosplenomegaly Musculoskeletal no cyanosis or clubbing, extremities motor strength 5/5 Skin no rashes, warm and dry Neurologic patellar DTR's 2+ bilat, sensation intact Psychiatric A+Ox3, euthymic affect Genitourinary normal external appearance Results & Data ([facility]) Vital Signs (Past 12 Hours) Vital Signs Temp Pulse Pulse Resp BP Pulse Ox 08/20/21 08:15 36.8 C 93 H 18 100/63 08/20/21 07:45 94 H 16 96 08/20/21 03:30 36.6 C 94 H 18 99/69 L 97 08/20/21 00:38 64 18 97 08/19/21 23:55 36.9 C 91 H 18 111/72 96
--- NOTE | 2021-08-20 10:54 | Obstetrical Progress Note ---
Date of Service August 20, 2021 Assessment & Plan (1) Pulmonary edema: s/p C/sec Neg CXR On Lasix 20mg PO BID Oxygen sat on room air improved and pt breathing much better Hx of drug use and smoker- On Subutex Plan to disch Pt today if medicine agrees (2) hemorrhage: PPH. received 4 units PRBC since surgery stable H/H Physical Exam Constitutional WD/WN, vitals as above well developed and well nourished Eyes PERRL, conjunctivae normal, anicteric sclerae ENMT external ear and nose normal, oropharynx normal Neck trachea midline, no thyromegaly Respiratory Rales and Rhonchi in both lungs. worse on the left than right Cardiovascular RRR, no murmur, no edema Chest (Breasts) normal inspection/palpation of breasts Gastrointestinal (Abdomen) normal bowel sounds, soft, nontender, no hepatosplenomegaly Skin + incision (Clean,dry and intact) Psychiatric A+Ox3, euthymic affect Genitourinary defered Results & Data ([facility]) Vital Signs (Past 12 Hours) Vital Signs Temp Pulse Pulse Resp BP Pulse Ox 08/20/21 08:15 36.8 C 93 H 18 100/63 08/20/21 07:45 94 H 16 96 08/20/21 03:30 36.6 C 94 H 18 99/69 L 97 08/20/21 00:38 64 18 97 08/19/21 23:55 36.9 C 91 H 18 111/72 96
[2021-08-20] MEDS: guaiFENesin 600 MG TABCR PO SCH (12:50)
--- NOTE | 2021-08-20 15:24 | Progress Note ---
Date of Service August 20, 2021 Assessment & Plan (1) Pulmonary edema: Plan: spoke to Hospitalist agree with disch (2) hemorrhage: Admission and Anticipated Discharge Date Admission Date: August 16, 2021 Results & Data ([facility]) Vital Signs (Past 12 Hours) Vital Signs Temp Pulse Pulse Resp BP Pulse Ox 08/20/21 14:39 36.7 C 72 93 H 18 107/65 97 08/20/21 12:53 36.7 C 72 18 107/65 08/20/21 12:32 95 H 97 08/20/21 08:15 36.8 C 93 H 18 100/63 08/20/21 07:45 94 H 16 96 08/20/21 03:30 36.6 C 94 H 18 99/69 L 97
--- NOTE | 2021-08-20 16:30 | Hospitalist Progress Note ---
Date of Service August 20, 2021 Assessment & Plan (1) Acute respiratory failure: Plan: Hypoxemia Possible related to anemia/ fluid overload CXR no active disease in the chest Received Lasix IV yesterday breathing improved Currently on Lasix 20mg PO BID as per OBGYN Pt is clinically stable Lasix 20mg daily can be given for an additional 1 to 2 days Follow up with your primary care provider Continue monitor closely (2) Elevated troponin: Plan: Mostly due to demand ischemia due to anemia and hypoxia Troponin trending down Echo showed normal LV function, no wall motion abnormality . EF 60-65% Asymptomatic currently (3) 41 weeks gestation of : Plan: Management as per OB Anemia Mostly due to hemorrhage Hgb dropped to 6.7 today Type and cross and plan to get 2 units PRBC ( 4 units total received during hospital course ) Continue monitor H/H Ongoing tobacco abuse Counseling on smoking cessation DVT prophylaxis on SCD CODE status Full code Admission and Anticipated Discharge Date Admission Date: August 16, 2021 Subjective Patient was seen and examined for follow-up shortness of breath, chest pain and anemia Sitting in the cough with no acute distress feeding her baby Pt said that she feels fine Her hemoglobin is stable Spoke to OBGYN and pt is stable from medical standpoint Denies any chest pain, palpitation, dizziness and SOB Review of Systems Review of Systems: All systems reviewed & are unremarkable except as noted in Subjective Physical Exam Physical Exam: General- No acute distress Head- atraumatic Eyes- PERRL, EOMI, ENT- oropharynx clear Neck- supple, no JVD Lungs- clear to auscultation Heart- regular rhythm; no murmur Abdomen- normal bowel sounds, +incision Extremities- no calf tenderness Neuro- alert, oriented x 3; PERRL, EOMI; no facial palsy; no dysarthria Skin- warm & dry Results & Data Results & Data ([facility]) Vital Signs (Past 12 Hours) Vital Signs Temp Pulse Pulse Resp BP Pulse Ox 08/20/21 14:39 36.7 C 72 93 H 18 107/65 97 08/20/21 12:53 36.7 C 72 18 107/65 08/20/21 12:32 95 H 97 08/20/21 08:15 36.8 C 93 H 18 100/63 08/20/21 07:45 94 H 16 96
== END 2021-08-20 18:30 | disposition home or self-care (01) | DRG 786 ==
LOC: 4S1 09:34 → 4S2 08-17 15:00
DX: O99.284 Endocrine, nutritional and metabolic diseases complicating childbirth; F11.20 Opioid dependence, uncomplicated; F32.9 Major depressive disorder, single episode, unspecified; O72.1 Other immediate postpartum hemorrhage; J44.9 Chronic obstructive pulmonary disease, unspecified; B19.20 Unspecified viral hepatitis C without hepatic coma; O99.03 Anemia complicating the puerperium; O76 Abnormality in fetal heart rate and rhythm complicating labor and delivery; O99.824 Streptococcus B carrier state complicating childbirth; O09.219 Supervision of pregnancy with history of pre-term labor, unspecified trimester; O99.340 Other mental disorders complicating pregnancy, unspecified trimester; J96.01 Acute respiratory failure with hypoxia; Z37.0 Single live birth; O99.334 Smoking (tobacco) complicating childbirth; I24.8 Other forms of acute ischemic heart disease; Z3A.41 41 weeks gestation of pregnancy; O99.324 Drug use complicating childbirth; J81.1 Chronic pulmonary edema; E03.9 Hypothyroidism, unspecified; O48.0 Post-term pregnancy; O99.43 Diseases of the circulatory system complicating the puerperium; O99.511 Diseases of the respiratory system complicating pregnancy, first trimester; O98.42 Viral hepatitis complicating childbirth; O34.211 Maternal care for low transverse scar from previous cesarean delivery